=== PATIENT | female | born 1945 | race Caucasian/White ===

== ENCOUNTER → 2016-09-25 | Outpatient (CLI) | payer OTHER ==
[2015-12-26 11:21] VITALS: BP 123/66
--- NOTE | 2016-09-25 13:43 | CT ---
STUDY: CT HEAD WITHOUT CONTRAST HISTORY: Ataxia. CVA. Syncope, dizzy, nausea. COMPARISON: Brain MRI dated February 21, 2014. TECHNIQUE: Multiple axial images of the head were obtained from the skull base to the vertex without administration of IV contrast. Automated exposure control (AEC) was utilized to adjust the MA and/o r kV. Findings: The sulci, cisterns and ventricles are age appropriate. There are scattered foci of low at tenuation in the periventricular and subcortical white matter of both hemispheres. This is a nonspec ific finding which likely represents microangiopathic change in a patient of this age. There are old lacunar infarcts in the basal ganglia bilaterally. There is no evidence of acute anton torial infarction, hemorrhage, mass, mass effect or midline shift. There are no abnormal extra-axial fluid collections. There is no evidence of acute osseous abnormality or significant soft tissue swelling. IMPRESSION: 1. No evidence of acute intracranial abnormality. 2. Nonspecific white matter change. 3. 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 4. If there remains strong clinical concern for acute intracranial abnormality, then an MRI examinat ion should be considered for further evaluation. Reported By:
== END ==
LOC: RAD 10:48
PROVIDERS: ATTEND Internal Medicine
DX: R27.0 Ataxia, unspecified (principal); I67.89 Other cerebrovascular disease
CPT/HCPCS: 70450

== ENCOUNTER → 2016-12-02 | Outpatient (CLI) | payer OTHER ==
[2015-12-26 11:21] VITALS: BP 123/66
--- NOTE | 2016-12-03 16:02 | MG ---
HISTORY: SCREENING Comparison: Multiple mammograms dating back to October 18, 2014. FINDINGS: Bilateral CC and MLO projections of the right and left breast were obtained. Heterogeneously dense fibroglandular tissue is seen to be present. No significant architectural distortion, mass or clust ered microcalcifications can be observed to suggest malignancy. No skin thickening or nipple retrac tion is appreciated. No pathological lymphadenopathy can be identified. Benign-appearing calcifica tions scattered throughout the right and left breasts are observed. IMPRESSION: NO RADIOGRAPHIC EVIDENCE OF MALIGNANCY. ACR CATEGORY: 2 - benign findings. FOLLOW-UP EXAM 1 YEAR. Diagnostic CAD was utilized and reviewed. * 0 (ZERO) - ASSESSMENT INCOMPLETE; ADDITIONAL IMAGING IS NEEDED. * 1/ (ONE) - NEGATIVE. * 2/II (TWO) - BENIGN FINDINGS. * 3/III (THREE) - PROBABLY BENIGN FINDING; SHORT INTERVAL FOLLOW-UP SUGGESTED. * 4/IV (FOUR) - SUSPICIOUS ABNORMALITY; BIOPSY SHOULD BE CONSIDERED. * 5/V - HIGHLY SUSPICIOUS OF MALIGNANCY; BIOPSY SHOULD BE PERFORMED. A NEGATIVE X-RAY REPORT SHOULD NOT DELAY BIOPSY IF A DOMINANT OR CLINICALLY SUSPICIOUS MASS IS PRESENT; 4 TO 8 PERCENT OF CANCERS ARE NOT IDENTIFIED BY X-RAY. A NEG ATIVE REPORT MAY REINFORCE THE CLINICAL IMPRESSION. ADENOSIS AND DENSE BREASTS MAY OBSCURE AN UNDER LYING NEOPLASM. Reported By:
== END ==
LOC: RAD 13:25
PROVIDERS: ATTEND Internal Medicine
DX: Z12.31 Encounter for screening mammogram for malignant neoplasm of breast (principal)
CPT/HCPCS: 77067

== ENCOUNTER 2017-11-25 14:30 | Inpatient (IN) ==
[2017-11-25] MEDS ORDERED: NS 1000 ML 1,000 ML IV ONE ×3 (15:05→19:06)
[2017-11-25 15:20] LABS: BASOPHILS % (AUTO) 0.4 % (0.2-1.0); EOSINOPHILS # (AUTO) 0.1 x10^3/uL (0.0-0.2); EOSINOPHILS % (AUTO) 2.2 % (0.9-2.9); HEMATOCRIT 42.9 % (36.0-47.0); HEMOGLOBIN 14.3 g/dL (12.0-16.0); LYMPHOCYTES # (AUTO) 0.7 X10^3/uL (1.3-2.9); LYMPHOCYTES % (AUTO) 19.6 % (21.0-51.0); MEAN CORPUSCULAR HGB CONC 33.4 g/dL (33.0-35.0); MEAN CORPUSCULAR VOLUME 89.9 fL (80.0-100.0); MONOCYTES # (AUTO) 0 x10^3/uL (0.3-0.8); MONOCYTES % (AUTO) 1.2 % (0.0-13.0); NEUTROPHILS # (AUTO) 2.9 x10^3/uL (2.2-4.8); NEUTROPHILS % (AUTO) 76.6 % (42.0-75.0); PLATELET COUNT 278 X10^3/uL (150.0-450.0); RED BLOOD COUNT 4.76 X10^6/uL (3.5-5.4); RED CELL DISTRIBUTION WIDTH 13.3 % (11.6-16.5); WHITE BLOOD COUNT 3.7 X10^3/uL (3.6-10.0)
--- NOTE | 2017-11-25 15:40 | RAD ---
Chest, AP Indication: Chest pain Comparison: 02/10/2014 Findings: Cardiac silhouette is unremarkable. The lungs are grossly clear without dense infiltrates o r pleural effusion. Unchanged mild right hemidiaphragm elevation. Impression: No acute chest process. Reported By:
[2017-11-25 15:42] LABS: B-TYPE NATRIURETIC PEPTIDE 12.3 pg/mL (0-79)
[2017-11-25 16:23] LABS: ALANINE AMINOTRANSFERASE 76 Units/L (12-78); ALBUMIN 3.6 g/dL (3.4-5.0); ALKALINE PHOSPHATASE 83 Units/L (46-116); ASPARTATE AMINO TRANSFERASE 84 Units/L (15-37); BLOOD UREA NITROGEN 29 mg/dL (7-18); CARBON DIOXIDE 18.6 mmol/L (21-32); CHLORIDE 98 mmol/L (98-107); CKMB % 0.8 % (<4); COR NA(FOR HYPERGLY) 137 mmol/L (136-145); CREATINE KINASE 159 Units/L (26-192); CREATINE KINASE MB 1.3 ng/mL (0-4.0); CREATININE 1.46 mg/dL (0.55-1.02); MAGNESIUM 1.7 mg/dL (1.7-2.9); SODIUM 136 mmol/L (136-145); TROPONIN I < 0.02 ng/mL (0-1.5); eGFR NON BLACK RACES 37 (>60)
[2017-11-25 16:26] LABS: LACTIC ACID 6.4 mmol/L (0.4-2.0)
[2017-11-25] MEDS: ZOFRAN INJ 4 MG VIAL IVP PRN (17:13)
[2017-11-25] MEDS ORDERED: NS 1000 ML 1,000 ML ONE (17:16)
[2017-11-25] MEDS ORDERED: ANTIVERT TAB 25 MG PO PRN (18:09)
[2017-11-25] MEDS ORDERED: TYLENOL #3 TAB (W/CODEINE) PO PRN (18:09)
[2017-11-25] MEDS ORDERED: XANAX ONE (19:10)
[2017-11-25] MEDS: NS 1000 ML 1,000 ML IV SCH ×2 (19:13→21:43)
[2017-11-25 19:38] LABS: CKMB % 0.5 % (<4); CREATINE KINASE 278 Units/L (26-192); CREATINE KINASE MB 1.3 ng/mL (0-4.0); TROPONIN I < 0.02 ng/mL (0-1.5)
[2017-11-25] MEDS ORDERED: TYLENOL 325 MG TAB PO PRN (20:00)
[2017-11-25] MEDS ORDERED: CARDIZEM INJ 125 MG VIAL 125 MG in NS 100 ML IV 100 ML IV PRN (20:08)
[2017-11-25] MEDS ORDERED: OFIRMEV IV 1000 MG VIAL 1,000 MG/100 ML VIAL IV PRN (20:08)
[2017-11-25] MEDS ORDERED: CARDIZEM INJ 50 MG VIAL ONE (20:52)
[2017-11-25] MEDS ORDERED: NS 100 ML IV 100 ML IV ONE (20:52)
[2017-11-25] MEDS: XANAX PO SCH (21:00)
[2017-11-25] MEDS ORDERED: CARDIZEM INJ 50 MG VIAL IVP ONE (21:05)
[2017-11-25] MEDS ORDERED: GLUCOPHAGE ONE (21:22)
[2017-11-25] MEDS ORDERED: NS 250 ML IV 250 ML IV ONE (21:24)
[2017-11-25] MEDS: CRESTOR TAB 10 MG PO SCH (21:28)
[2017-11-25] MEDS: RESTORIL CAP 30 MG PO SCH (21:28)
[2017-11-25] MEDS: ROCEPHIN VIAL 1 GRAM 1 G in NS 100 ML IV + SPIKE MINIBAG* 100 ML IV SCH (21:30)
[2017-11-25] MEDS: GLUCOPHAGE PO SCH (22:00)
[2017-11-25] MEDS ORDERED: K-RIDER 10 MEQ/NS 100 ML 10 MEQ/100 ML BAG IV PRN (22:21)
[2017-11-25] MEDS ORDERED: POTASSIUM CHLORIDE LIQ 20 MEQ UDC PO PRN (22:21)
[2017-11-25] MEDS ORDERED: POTASSIUM CHL 60 MEQ/NS 0.45% 500 ML IV PRN (22:21)
[2017-11-25] MEDS ORDERED: K-LYTE EFFERVESCENT PO PRN (22:21)
[2017-11-25] MEDS ORDERED: POTASSIUM CHL 40 MEQ/NS 0.45% 500 ML IV PRN (22:21)
[2017-11-25] MEDS ORDERED: VANCOMYCIN HCL 1 GM VIAL 1 G in D5W 250 ML IV 250 ML IV ONE (23:20)
[2017-11-25] MEDS ORDERED: VANCOMYCIN 1 GRAM PREMIX (ADDVANTAGE) 250 ML IV ONE (23:22)
[2017-11-25 23:32] VITALS: BMI 24.5
[2017-11-26] MEDS: NS 1000 ML 1,000 ML IV SCH ×4 (00:04→20:00)
[2017-11-26] MEDS: ZOFRAN INJ 4 MG VIAL IVP PRN (01:06)
[2017-11-26] MEDS ORDERED: NS 1000 ML 1,000 ML IV ONE ×2 (01:30→10:18)
[2017-11-26 02:27] LABS: CALCIUM 7.1 mg/dL (8.5-10.1); CARBON DIOXIDE 18.3 mmol/L (21-32); CREATININE 1.17 mg/dL (0.55-1.02)
[2017-11-26 02:28] LABS: LACTIC ACID 3.3 mmol/L (0.4-2.0)
[2017-11-26 02:49] LABS: CKMB % 0.3 % (<4); CREATINE KINASE 451 Units/L (26-192); CREATINE KINASE MB 1.4 ng/mL (0-4.0); TROPONIN I < 0.02 ng/mL (0-1.5)
[2017-11-26] MEDS ORDERED: NS 100 ML IV 100 ML IV ONE ×2 (03:14→11:34)
[2017-11-26] MEDS: MAGNESIUM SULFATE 1 GRAM/100 mL PREMIX 1 GM/100 ML BAG IV PRN ×2 (03:40→04:50)
--- NOTE | 2017-11-26 03:54 | CT ---
CT angiography chest Indication: Shortness of breath, hypotension Technique: The patient received intravenous contrast. 3D and reconstructed multiplanar images with OR P series provided Findings: Cardiac chambers are grossly within normal limits. There is scattered atherosclerosis of th e aorta with no aneurysm or dissection. The pulmonary arteries are normal. There is basilar atelectas is in the right lung underlying COPD is stable. The skeleton is negative for active pathology. Impression: 1. Negative exam for pulmonary artery embolus aortic aneurysm or dissection. 2. Mild incr eased markings of the lung bases. Reported By:
[2017-11-26 05:18] LABS: BILIRUBIN,URINE NEGATIVE (NEGATIVE); BLOOD/HEMOGLOBIN,URINE 2+ (NEGATIVE); GLUCOSE, URINE NEGATIVE (NEGATIVE); KETONES,URINE NEGATIVE (NEGATIVE); LEUKOCYTE ESTERASE ,URINE NEGATIVE (NEGATIVE); NITRITES,URINE NEGATIVE (NEGATIVE); PROTEIN,URINE 1+ (NEGATIVE); UROBILINOGEN,URINE NORMAL (NORMAL)
[2017-11-26 05:19] LABS: APPEARANCE,URINE CLEAR (CLEAR); COLOR,URINE YELLOW (YELLOW)
[2017-11-26 05:25] LABS: BACTERIA,URINE NEGATIVE /HPF (NEGATIVE); RBC,URINE 0-2 /HPF (NONE SEEN); SQUAMOUS EPITHELIAL CELL,UR NEGATIVE /HPF (NEGATIVE)
[2017-11-26] MEDS: DOPAMINE IV PREMIX 400 MG/250 ML 400 MG/250 ML BAG IV PRN ×4 (06:10→16:00)
[2017-11-26] MEDS: HumuLIN R SUBCUT PRN ×2 (06:18→20:37)
[2017-11-26] MEDS: DIFLUCAN PO SCH (08:25)
[2017-11-26] MEDS: XANAX PO SCH ×2 (08:25→21:00)
[2017-11-26] MEDS: ROCEPHIN VIAL 1 GRAM 1 G in NS 100 ML IV + SPIKE MINIBAG* 100 ML IV SCH (08:25)
[2017-11-26] MEDS: PROTONIX TAB 40 MG PO SCH (08:26)
[2017-11-26 08:46] LABS: LACTIC ACID 2.8 mmol/L (0.4-2.0)
[2017-11-26 08:58] LABS: BASOPHILS % (AUTO) 0.3 % (0.2-1.0); EOSINOPHILS % (AUTO) 0.1 % (0.9-2.9); HEMOGLOBIN 11.1 g/dL (12.0-16.0); LYMPHOCYTES # (AUTO) 0.6 X10^3/uL (1.3-2.9); LYMPHOCYTES % (AUTO) 7.4 % (21.0-51.0); MEAN CORPUSCULAR HEMOGLOBIN 30.2 pg (27.0-34.0); MEAN CORPUSCULAR HGB CONC 34.5 g/dL (33.0-35.0); MEAN CORPUSCULAR VOLUME 87.5 fL (80.0-100.0); MEAN PLATELET VOLUME 8.3 fL (7.4-11.0); MONOCYTES # (AUTO) 0.4 x10^3/uL (0.3-0.8); MONOCYTES % (AUTO) 4.6 % (0.0-13.0); NEUTROPHILS # (AUTO) 7.4 x10^3/uL (2.2-4.8); NEUTROPHILS % (AUTO) 87.6 % (42.0-75.0); PLATELET COUNT 188 X10^3/uL (150.0-450.0); RED BLOOD COUNT 3.66 X10^6/uL (3.5-5.4); RED CELL DISTRIBUTION WIDTH 13.5 % (11.6-16.5); WHITE BLOOD COUNT 8.4 X10^3/uL (3.6-10.0)
[2017-11-26 08:58] LABS: ABG ALLEN TEST POS; ABG HCO3 19.2 mmol/L (22-26)
--- NOTE | 2017-11-26 09:25 | DR.H&P ---
H&P - History & Physical for Day of: H&P Date: 11/25/17 - Chief Complaint Chief Complaint: SHAKING, UNSTEADY GAIT, NAUSEA, VOMITING, SHORTNESS OF BREATH - History of Present Illness History of Present Illness: IS A 72 YEAR OLD PATIENT OF OURS WHO PRESENTED TO THE OFFICE WITH COMPLAINTS OF AN UNSTEADY GAIT AND VIGOROUSLY SHAKING. PATIENT ALSO REPORTS NAUSEA AND VOMITING OVER THE PAST TWO DAYS. SHE REPORTS THAT HER BLOOD PRESSURE WAS 80/ THIS MORNING. ASSOCIATED SYMPTOMS INCLUDE SHORTNESS OF BREATH. ON ARRIVAL, VITALS WERE 98.3-144-20-77%-139/81. PATIENT WAS PLACED ON OXYGEN VIA NASAL CANNULA AT 3 L/MIN. OXYGEN SATURATIONS THEN INCREASED TO 100%. LABS WERE OBTAINED. ABNORMAL LAB VALUES INCLUDE THE FOLLOWING: D-DIMER 3560, CARBON DIOXIDE 18.6, BUN 29, CREATININE 1.46, GLUCOSE 152, LACTIC ACID 6.4, TOTAL BILIRUIN 1.30, AST 84. URINALYSIS REVELED WBC-NONE SEEN, RBC 0-2, OCCULT BLOOD 2+, PROTEIN 1+. A CHEST XRAY WAS OBTAINED AND REVEALED NO ACUTE CHEST PROCESS. EKG REVEALED: ATRIAL FIBRILLATION WITH RVR. RATE 153. SHE WAS GIVEN A NORMAL SALINE BOLUS X 2 IN THE ER AND ADMITTED FOR FURTHER EVALUATION AND TREATMENT OF DEHYDRATION, ATRIAL FIBRILLATION, AND SEPSIS. SHE WAS STARTED ON NORMAL SALINE AT 125ML/HR, VANCOMYCIN 1GM IV X 1 DOSE (PHARMACY TO CALCULATE FURTHER DOSES), ROCEPHIN 1GM IV DAILY, AND HOME MEDICATIONS WERE REVIEWED. WE PLAN TO FOLLOW UP WITH LABS AND CONTINUE TO MONITOR PATIENT. - Past Medical History Past Medical History: Diabetes, Dyslipidemia, Hypertension, Hypothyroidism - Past Surgical History Surgical History: Cholecystectomy, Hysterectomy, Tonsillectomy - Family History Family Medical History: Diabetes Mellitus, [place], Hypertension - Social History Does patient currently use any type of tobacco product: No Have you used tobacco products in the last 12 months: No Type of Tobacco Use: None Does any household member use tobacco: No Alcohol Use: None Drug Use: None - Medications Home Medications: amoxicillin Allergy (Verified 11/25/17 17:38) codeine Allergy (Verified 11/25/17 18:09) nitrofurantoin [From Macrobid] Allergy (Verified 11/25/17 17:38) Sulfa (Sulfonamide Antibiotics) [SULFA] Allergy (Verified 11/25/17 17:38) CONTINUE taking the following medications amlodipine 1 tab PO DAILY 11/25/17 [History] atorvastatin 1 tab PO DAILY 11/25/17 [History] clonidine HCl 1 tab PO HS 11/25/17 [History] cyclobenzaprine 10 mg PO TID PRN 11/25/17 [History] dicyclomine 20 mg PO QID 11/25/17 [History] fluconazole 1 tab PO DAILY 11/25/17 [History] meclizine 1 tab PO DAILY PRN 11/25/17 [History] metformin 1 tab PO TID 11/25/17 [History] oxycodone-acetaminophen 1 tab PO Q6H PRN 11/25/17 [History] pantoprazole 1 tab PO DAILY 11/25/17 [History] rosuvastatin 1 tab PO HS 11/25/17 [History] - Review of Systems Constitutional: Chills, Weakness Eyes: No Symptoms Reported ENT: No Symptoms Reported Respiratory: Shortness of Breath Cardiovascular: No Symptoms Reported Gastrointestinal: Nausea, Vomiting, Abdominal Pain Genitourinary: No Symptoms Reported Musculoskeletal: No Symptoms Reported Skin: No Symptoms Reported Neurological: Weakness, Incoordination - Physical Exam Vital Signs: Temperature 98.5 F Pulse Rate [Left Apical] 111 Pulse Rate 144 Respiratory Rate 29 Blood Pressure [Left Arm] 104/57 Blood Pressure 139/81 O2 Sat by Pulse Oximetry 96 Oriented: Normal Eyes: Normal Ear: Normal Nose: Normal Throat: Normal Respiratory: Diminished Throughout Cardiovascular: Tachycardia, Irregular. negative: S3, S4, Murmur : Normal Auscultation: Bowel Sounds: Increased Palpation: Normal Tenderness: Diffuse, Mild. negative: Rebound, Guarding, Rigidity Skin: Normal Musculoskeletal: Instability Psychiatric: Normal Mood Description: Calm Affect: Normal Speech Pattern: Clear - Assessment/Plan (1) Dehydration Status: Acute Plan: NORMAL SALINE AT 125ML/HR, CONTINUE TO MONITOR (2) Atrial fibrillation Status: Acute Plan: CARDIZEM DRIP, RADIOLOGY PHYSICIAN, CONTINUE TO MONITOR (3) Sepsis Status: Acute Plan: VANCOMYCIN IV, ROCEPHIN 1GM IV DAILY, CONTINUE TO MONITOR - Allergies Allergies/Adverse Reactions: Allergies Allergy/AdvReac Type Severity Reaction Status Date / Time amoxicillin Allergy Verified 11/25/17 17:38 codeine Allergy Verified 11/25/17 18:09 nitrofurantoin Allergy Verified 11/25/17 17:38 [From Macrobid] Sulfa (Sulfonamide Allergy Verified 11/25/17 17:38 Antibiotics) [SULFA]
[2017-11-26 09:47] LABS: ALANINE AMINOTRANSFERASE 84 Units/L (12-78); ALBUMIN 2.5 g/dL (3.4-5.0); ALKALINE PHOSPHATASE 78 Units/L (46-116); ASPARTATE AMINO TRANSFERASE 90 Units/L (15-37); BLOOD UREA NITROGEN 16 mg/dL (7-18); CALCIUM 7.6 mg/dL (8.5-10.1); CARBON DIOXIDE 19.4 mmol/L (21-32); CHLORIDE 105 mmol/L (98-107); CHOLESTEROL < 50 mg/dL (0-200); CKMB % 0.4 % (<4); COR CA(FOR HYPOALB) 8.8 mg/dL (8.5-10.1); COR NA(FOR HYPERGLY) 139 mmol/L (136-145); CREATINE KINASE 474 Units/L (26-192); CREATINE KINASE MB 1.8 ng/mL (0-4.0); CREATININE 1.01 mg/dL (0.55-1.02); SODIUM 137 mmol/L (136-145); TOTAL PROTEIN 6.3 g/dL (6.4-8.2); TRIGLYCERIDES 85 mg/dL (0-150); TROPONIN I < 0.02 ng/mL (0-1.5); eGFR NON BLACK RACES 57 (>60)
[2017-11-26 10:40] LABS: CHOL/HDL RATIO 1.1 (0.0-5.0); HDL CHOLESTEROL 46 mg/dL (40-60)
[2017-11-26] MEDS: TORADOL 15 MG VIAL IVP PRN ×2 (10:45→20:35)
[2017-11-26] MEDS ORDERED: PHARMACY CONSULT - VANCOMYCIN XX SCH (12:00)
--- NOTE | 2017-11-26 16:43 | CT ---
CT abdomen and pelvis with contrast Indication: Hypotension, nausea, vomiting, and diarrhea. Comparison: None Technique: CT images of the abdomen and pelvis were obtained with IV and oral contrast. Automatic exp osure control was utilized. Findings: There is multilevel spondylosis, most marked at L4-5 with mild lumbar scoliosis. No acute o sseous abnormality. Images of the lower chest demonstrate chronic appearing interstitial changes of t he lungs. No dense infiltrates or significant pleural effusion. Small round hypodensity within the lateral hepatic segment cannot be definitively characterized, but is likely a benign lesion. The liver is grossly normal in configuration. There are several mildly enl arged upper abdominal lymph nodes. For example, there is the jefferson hepatis lymph node measuring 1.4 c m in short axis (axial image 23). Previous cholecystectomy is noted. The spleen, stomach, duodenum, p ancreas, adrenals, and kidneys are unremarkable. Retro aortic left renal vein incidentally noted. The re is small amount of layering pelvic free fluid, some which lies adjacent to a portion of the sigmoi d, although this bowel loop is otherwise grossly unremarkable. No marked thickening or dilatation of the lower GI tract bowel loops identified. The appendix is not identified, but there is no significan t pericecal inflammation to suggest acute appendicitis. Urinary bladder is mostly collapsed around a Park catheter. Small amount of bladder gas is compatible with catheterization. Previous hysterectomy . The rectum is unremarkable. There is aortoiliac atherosclerosis, with infrarenal aortic ectasia. Impression: No acute process identified to explain patient's symptoms. Mild upper abdominal adenopathy of uncertain significance. Small volume nonspecific layering pelvic free fluid Additional findings as above. Reported By:
[2017-11-26 19:44] LABS: STOOL FOR WBC NEGATIVE (NEGATIVE)
[2017-11-26] MEDS: CRESTOR TAB 10 MG PO SCH (20:35)
[2017-11-26] MEDS: RESTORIL CAP 30 MG PO SCH (20:35)
[2017-11-26] MEDS ORDERED: VANCOMYCIN HCL 1 GM VIAL ONE (21:44)
[2017-11-26] MEDS ORDERED: VANCOMYCIN HCL 500 MG VIAL ONE (21:44)
[2017-11-26] MEDS: VANCOMYCIN HCL 500 MG VIAL 250 MG, VANCOMYCIN HCL 1 GM VIAL 1 G in D5W 250 ML IV 250 ML IV SCH (21:45)
[2017-11-26] MEDS ORDERED: D5W 250 ML IV 250 ML IV ONE (21:45)
[2017-11-27] MEDS: DOPAMINE IV PREMIX 400 MG/250 ML 400 MG/250 ML BAG IV PRN
[2017-11-27] MEDS: NS 1000 ML 1,000 ML IV SCH ×3 (02:00→20:30)
[2017-11-27 04:30] LABS: BASOPHILS # (AUTO) 0.1 X10^3/uL (0.0-0.1); BASOPHILS % (AUTO) 0.6 % (0.2-1.0); EOSINOPHILS # (AUTO) 0.1 x10^3/uL (0.0-0.2); EOSINOPHILS % (AUTO) 1.2 % (0.9-2.9); HEMOGLOBIN 11.2 g/dL (12.0-16.0); LYMPHOCYTES # (AUTO) 1.3 X10^3/uL (1.3-2.9); LYMPHOCYTES % (AUTO) 13.5 % (21.0-51.0); MEAN CORPUSCULAR HEMOGLOBIN 30.4 pg (27.0-34.0); MEAN CORPUSCULAR HGB CONC 34.9 g/dL (33.0-35.0); MEAN CORPUSCULAR VOLUME 86.9 fL (80.0-100.0); MEAN PLATELET VOLUME 7.8 fL (7.4-11.0); MONOCYTES # (AUTO) 0.5 x10^3/uL (0.3-0.8); MONOCYTES % (AUTO) 5.5 % (0.0-13.0); NEUTROPHILS # (AUTO) 7.4 x10^3/uL (2.2-4.8); NEUTROPHILS % (AUTO) 79.2 % (42.0-75.0); PLATELET COUNT 184 X10^3/uL (150.0-450.0); RED BLOOD COUNT 3.68 X10^6/uL (3.5-5.4); RED CELL DISTRIBUTION WIDTH 13.5 % (11.6-16.5); WHITE BLOOD COUNT 9.3 X10^3/uL (3.6-10.0)
[2017-11-27 04:43] LABS: LACTIC ACID 3.3 mmol/L (0.4-2.0)
[2017-11-27 04:52] LABS: ALANINE AMINOTRANSFERASE 72 Units/L (12-78); ALBUMIN 2.3 g/dL (3.4-5.0); ALKALINE PHOSPHATASE 78 Units/L (46-116); ASPARTATE AMINO TRANSFERASE 65 Units/L (15-37); BLOOD UREA NITROGEN 8 mg/dL (7-18); CALCIUM 8.1 mg/dL (8.5-10.1); CARBON DIOXIDE 23.7 mmol/L (21-32); CHLORIDE 106 mmol/L (98-107); CKMB % 0.5 % (<4); COR CA(FOR HYPOALB) 9.5 mg/dL (8.5-10.1); COR NA(FOR HYPERGLY) 140 mmol/L (136-145); CREATINE KINASE 204 Units/L (26-192); CREATINE KINASE MB 1.1 ng/mL (0-4.0); CREATININE 0.81 mg/dL (0.55-1.02); SODIUM 140 mmol/L (136-145); TOTAL PROTEIN 6.1 g/dL (6.4-8.2); TROPONIN I < 0.02 ng/mL (0-1.5); eGFR NON BLACK RACES > 60 (>60)
[2017-11-27 05:18] LABS: ERYTHROCYTE SEDIMENTATION RATE 56 MM/HOUR (0-20)
[2017-11-27] MEDS: PROTONIX TAB 40 MG PO SCH (08:30)
[2017-11-27] MEDS: DIFLUCAN PO SCH (08:30)
[2017-11-27] MEDS: ROCEPHIN VIAL 1 GRAM 1 G in NS 100 ML IV + SPIKE MINIBAG* 100 ML IV SCH (08:31)
[2017-11-27] MEDS: XANAX PO SCH ×2 (08:31→20:35)
--- NOTE | 2017-11-27 18:35 | PCM.PROG ---
Progress Note - Progress Note for Day of Date of Exam: 11/26/17 - Subjective Subjective: WAS ADMITTED FOR DEHYDRATION, ATRIAL FIBRILLATION, AND SEPSIS. SHE WAS STARTED ON A DOPAMINE DRIP AFTER ADMISSION DUE TO PERSISTENT HYPOTENSION DESPITE IV HYDRATION. SHE WAS ALSO STARTED ON A CARDIZEM DRIP DUE TO HEARTRATE IN THE 130s-140s. TODAY, SHE IS ALERT AND ORIENTED, LYING IN BED ON MORNING ROUNDS. SHE IS NOTED WITH COMPLAINTS OF GENERALIZED WEAKNESS AND ABDOMINAL PAIN THIS MORNING. ON EXAMINATION, SHE CONTINUES TO BE IN ATRIAL FIBRILLATION WITH HEARTRATE 110-120. BILATERAL LUNGS ARE NOTED WITH DIMINISHED LUNG SOUNDS THROUGHOUT. ABDOMEN IS ROUND, SOFT, AND NOTED WITH MODERATE, DIFFUSE TENDERNESS TO PALPATION. SHE REMAINS ON THE DOPAMINE DRIP, HOWEVER, THE CARDIZEM DRIP HAS BEEN DISCONTINUED. HER VITALS THIS MORNING ARE 99.3-438-36-100 %NC-99/49. LABS WERE OBTAINED. ABNORMAL LAB VALUES INCLUDE THE FOLLOWING: HGB 11.1, HCT 32.0, CARBON DIOXIDE 19.4, GLUCOSE 163, LACTIC ACID 2.8, CALCIUM 7.6, TOTAL BILI 1.20, AST 90, ALT 84, CREATINE KINASE 474, TOTAL PROTEIN 6.3, ALBUMIN 2.5. AN ABG WAS OBTAINED AND REVEALED: PH 7.430, PC02 29.0, P02 96.0, HC03 19.2, BASE EXCESS -4.0. BLOOD CULTURES AND URINE CULTURE ARE PENDING. A CHEST CT WAS OBTAINED THIS MORNING AND REVEALED: Negative exam for pulmonary artery embolus aortic aneurysm or dissection. 2. Mild increased markings of the lung bases. TODAY, WE WILL BOLUS PATIENT WITH ONE LITER NORMAL SALINE, THEN INCREASE MAINTENANCE FLUIDS TO 150ML/HR. WE WILL START TORADOL 15MG IV Q6H FOR COMPLAINTS OF HEADACHE. WE WILL OBTAIN AN ABDOMEN/PELVIS CT WITH CONTRAST AND TRACK CRP AND ESR LEVELS. OTHERWISE, WE PLAN TO FOLLOW UP WITH AM LABS AND CONTINUE TO MONITOR PATIENT. - Past Medical Family Social History Past Med/Fam/Surg Hx: No changes since H&P Allergies: Allergies amoxicillin Allergy (Verified 11/25/17 17:38) codeine Allergy (Verified 11/25/17 18:09) nitrofurantoin [From Macrobid] Allergy (Verified 11/25/17 17:38) Sulfa (Sulfonamide Antibiotics) [SULFA] Allergy (Verified 11/25/17 17:38) - Review of Systems ROS: No change since H&P - Vital Signs and I&O's Vital Signs: Temperature 100.0 F Pulse Rate [Left Apical] 91 Pulse Rate 144 Respiratory Rate 26 Blood Pressure [Left Arm] 130/59 Blood Pressure 139/81 O2 Sat by Pulse Oximetry 97 Intake and Output: Intake & Output 11/25/17 11/26/17 11/27/17 11/28/17 11:59 11:59 11:59 11:59 Intake Total 6425 / 6425 6437 / 6437 1750 / 1750 Output Total 2800 / 2800 8200 / 8200 1200 / 1200 Balance 3625 / 3625 -1763 / -1763 550 / 550 - Physical Exam Oriented: Normal Eyes: Normal Ear: Normal Nose: Normal Throat: Normal Respiratory: Generalized, Diminished Cardiovascular: Tachycardia, Irregular. negative: S3, S4, Murmur : Normal Auscultation: Bowel Sounds: Increased Palpation: Normal Tenderness: Diffuse, Moderate. negative: Rebound, Guarding, Rigidity Skin: Normal Musculoskeletal: Instability Psychiatric: Normal Mood Description: Calm Affect: Normal Speech Pattern: Clear, Appropriate - Laboratory and Diagnostics Result Diagrams: 11/27/17 04:19 11/27/17 04:19 Labs: 11/26/17 18:28 Stool Stool Culture - Preliminary 11/26/17 18:28 Stool - Final 11/25/17 19:33 Urine,Catheterized Urine Culture - Final 11/25/17 14:45 Blood Blood Culture - Preliminary 11/25/17 15:00 Blood Blood Culture - Preliminary 11/25/17 22:47 Blood Blood Culture - Preliminary 11/25/17 23:51 Blood Blood Culture - Preliminary Laboratory WBC 9.3 X10^3/uL (3.6-10.0) 11/27/17 04:19 RBC 3.68 X10^6/uL (3.5-5.4) 11/27/17 04:19 Hgb 11.2 g/dL (12.0-16.0) L 11/27/17 04:19 Hct 32.0 % (36.0-47.0) L 11/27/17 04:19 MCV 86.9 fL (80.0-100.0) 11/27/17 04:19 MCH 30.4 pg (27.0-34.0) 11/27/17 04:19 MCHC 34.9 g/dL (33.0-35.0) 11/27/17 04:19 RDW 13.5 % (11.6-16.5) 11/27/17 04:19 Plt Count 184 X10^3/uL (150.0-450.0) 11/27/17 04:19 MPV 7.8 fL (7.4-11.0) 11/27/17 04:19 Neut % (Auto) 79.2 % (42.0-75.0) H 11/27/17 04:19 Lymph % (Auto) 13.5 % (21.0-51.0) L 11/27/17 04:19 Dillon % (Auto) 5.5 % (0.0-13.0) 11/27/17 04:19 Eos % (Auto) 1.2 % (0.9-2.9) 11/27/17 04:19 Baso % (Auto) 0.6 % (0.2-1.0) 11/27/17 04:19 Neut # (Auto) 7.4 x10^3/uL (2.2-4.8) H 11/27/17 04:19 Lymph # (Auto) 1.3 X10^3/uL (1.3-2.9) 11/27/17 04:19 Dillon # (Auto) 0.5 x10^3/uL (0.3-0.8) 11/27/17 04:19 Eos # (Auto) 0.1 x10^3/uL (0.0-0.2) 11/27/17 04:19 Baso # (Auto) 0.1 X10^3/uL (0.0-0.1) 11/27/17 04:19 Absolute Nucleated RBC 0.1 /100WBC 11/27/17 04:19 ESR 56 MM/HOUR (0-20) H 11/27/17 04:19 INR Target Range - 11/25/17 14:45 INR 1.02 (0.8-1.3) 11/25/17 14:45 APTT 34.4 SECONDS (22.9-36.5) 11/25/17 14:45 PTT Comment - 11/25/17 14:45 D-Dimer 3560 ng/mL (0-400) H* 11/25/17 14:45 Sample Site Lra 11/26/17 08:50 ABG pH 7.430 (7.35-7.45) 11/26/17 08:50 ABG pCO2 29.0 mmHg (35.0-45.0) L 11/26/17 08:50 ABG pO2 96.0 mmHg (80.0-100.0) 11/26/17 08:50 ABG HCO3 19.2 mmol/L (22-26) L 11/26/17 08:50 ABG O2 Saturation 98.0 % (90-100) 11/26/17 08:50 ABG Base Excess -4.0 mmol/L (-2.0-2.0) L 11/26/17 08:50 Ike Test Pos 11/26/17 08:50 A-a Gradient 67.0 mmHg 11/26/17 08:50 FiO2 28.000 11/26/17 08:50 Blood Gas Comments Charli well cs 11/26/17 08:50 Sodium 140 mmol/L (136-145) 11/27/17 04:19 Corrected Sodium 140 mmol/L (136-145) 11/27/17 04:19 Potassium 4.3 mmol/L (3.5-5.1) 11/27/17 04:19 Chloride 106 mmol/L (98-107) 11/27/17 04:19 Carbon Dioxide 23.7 mmol/L (21-32) 11/27/17 04:19 BUN 8 mg/dL (7-18) 11/27/17 04:19 Creatinine 0.81 mg/dL (0.55-1.02) 11/27/17 04:19 Est GFR (MDRD) Af Amer > 60 (>60) 11/27/17 04:19 Est GFR (MDRD) Non-Af > 60 (>60) 11/27/17 04:19 Glucose 116 mg/dL (65-99) H 11/27/17 04:19 POC Glucose (mg/dL) 119 mg/dL (65-99) H 11/27/17 17:11 Lactic Acid 3.3 mmol/L (0.4-2.0) H 11/27/17 04:19 Calcium 8.1 mg/dL (8.5-10.1) L 11/27/17 04:19 Corrected Calcium 9.5 mg/dL (8.5-10.1) 11/27/17 04:19 Magnesium 1.7 mg/dL (1.7-2.9) 11/25/17 14:45 Total Bilirubin 0.70 mg/dL (0.2-1.0) 11/27/17 04:19 AST 65 Units/L (15-37) H 11/27/17 04:19 ALT 72 Units/L (12-78) 11/27/17 04:19 Alkaline Phosphatase 78 Units/L (46-116) 11/27/17 04:19 Creatine Kinase 204 Units/L (26-192) H 11/27/17 04:19 CK-MB (CK-2) 1.1 ng/mL (0-4.0) 11/27/17 04:19 CK/CKMB % Calc 0.5 % (<4) 11/27/17 04:19 Troponin I < 0.02 ng/mL (0-1.5) 11/27/17 04:19 C-Reactive Protein 147.60 mg/L (0-3.0) H 11/27/17 04:19 B-Natriuretic Peptide 12.3 pg/mL (0-79) 11/25/17 14:45 Total Protein 6.1 g/dL (6.4-8.2) L 11/27/17 04:19 Albumin 2.3 g/dL (3.4-5.0) L 11/27/17 04:19 Globulin 3.8 g/dL (2.5-4.5) 11/27/17 04:19 Albumin/Globulin Ratio 0.6 Ratio (1.1-2.1) L 11/27/17 04:19 Triglycerides 85 mg/dL (0-150) 11/26/17 08:03 Cholesterol < 50 mg/dL (0-200) 11/26/17 08:03 LDL Cholesterol, Calc 0 mg/dL (0-100) 11/26/17 08:03 HDL Cholesterol 46 mg/dL (40-60) 11/26/17 08:03 Cholesterol/HDL Ratio 1.1 (0.0-5.0) 11/26/17 08:03 Specimen Type Catherized urine 11/26/17 04:10 Urine Color Yellow (YELLOW) 11/26/17 04:10 Urine Appearance Clear (CLEAR) 11/26/17 04:10 Urine pH 5.0 (5.0 - 8.0) 11/26/17 04:10 Ur Specific [place]oughton 1.010 (1.000-1.030) 11/26/17 04:10 Urine Protein 1+ (NEGATIVE) 11/26/17 04:10 Urine Glucose (UA) Negative (NEGATIVE) 11/26/17 04:10 Urine Ketones Negative (NEGATIVE) 11/26/17 04:10 Urine Occult Blood 2+ (NEGATIVE) 11/26/17 04:10 Urine Nitrite Negative (NEGATIVE) 11/26/17 04:10 Urine Bilirubin Negative (NEGATIVE) 11/26/17 04:10 Urine Urobilinogen Normal (NORMAL) 11/26/17 04:10 Ur Leukocyte Esterase Negative (NEGATIVE) 11/26/17 04:10 Urine RBC 0-2 /HPF (NONE SEEN) 11/26/17 04:10 Urine WBC None seen /HPF (NONE SEEN) 11/26/17 04:10 Ur Squamous Epith Cells Negative /HPF (NEGATIVE) 11/26/17 04:10 Urine Bacteria Negative /HPF (NEGATIVE) 11/26/17 04:10 Ur Culture Indicated? No/not indicated 11/26/17 04:10 Stool for White Cells Negative (NEGATIVE) 11/26/17 18:28 Stl C. diff Tox B Gene Negative (NEGATIVE) 11/26/17 18:28 Stl C. diff [id number] Negative (NEGATIVE) 11/26/17 18:28 - Plan (1) Dehydration Status: Acute Plan: NS BOLUS, NORMAL SALINE AT 150ML/HR, CONTINUE TO MONITOR (2) Atrial fibrillation Status: Acute Qualifiers: Atrial fibrillation type: chronic Qualified Code(s): I48.2 - Chronic atrial fibrillation Plan: EQUIPMENT SERVICE TECHNICIAN, CONTINUE TO MONITOR (3) Sepsis Status: Acute Qualifiers: Sepsis type: sepsis due to unspecified organism Qualified Code(s): A41.9 - Sepsis, unspecified organism Plan: VANCOMYCIN IV, ROCEPHIN 1GM IV DAILY, CONTINUE TO MONITOR, TRACT LACTIC ACID LEVELS, BLOOD CULTURES, URINE CULTURE
[2017-11-27] MEDS ORDERED: VANCOMYCIN HCL 500 MG VIAL ONE (20:22)
[2017-11-27] MEDS ORDERED: D5W 250 ML IV 250 ML IV ONE (20:22)
[2017-11-27] MEDS ORDERED: VANCOMYCIN HCL 1 GM VIAL ONE (20:22)
[2017-11-27] MEDS: CRESTOR TAB 10 MG PO SCH (20:35)
[2017-11-27] MEDS: RESTORIL CAP 30 MG PO SCH (20:35)
[2017-11-27] MEDS: VANCOMYCIN HCL 500 MG VIAL 250 MG, VANCOMYCIN HCL 1 GM VIAL 1 G in D5W 250 ML IV 250 ML IV SCH (20:35)
[2017-11-27] MEDS ORDERED: ZOFRAN INJ 4 MG VIAL IVP PRN (22:04)
[2017-11-28] MEDS: NS 1000 ML 1,000 ML IV SCH (02:00)
[2017-11-28 06:24] LABS: BASOPHILS # (AUTO) 0.1 X10^3/uL (0.0-0.1); BASOPHILS % (AUTO) 1.1 % (0.2-1.0); EOSINOPHILS # (AUTO) 0.2 x10^3/uL (0.0-0.2); EOSINOPHILS % (AUTO) 2.3 % (0.9-2.9); HEMATOCRIT 31.2 % (36.0-47.0); HEMOGLOBIN 10.9 g/dL (12.0-16.0); LYMPHOCYTES # (AUTO) 2.2 X10^3/uL (1.3-2.9); LYMPHOCYTES % (AUTO) 27.2 % (21.0-51.0); MEAN CORPUSCULAR HEMOGLOBIN 30.5 pg (27.0-34.0); MEAN CORPUSCULAR VOLUME 87.3 fL (80.0-100.0); MEAN PLATELET VOLUME 8.3 fL (7.4-11.0); MONOCYTES # (AUTO) 0.5 x10^3/uL (0.3-0.8); MONOCYTES % (AUTO) 5.7 % (0.0-13.0); NEUTROPHILS # (AUTO) 5.1 x10^3/uL (2.2-4.8); NEUTROPHILS % (AUTO) 63.7 % (42.0-75.0); PLATELET COUNT 169 X10^3/uL (150.0-450.0); RED BLOOD COUNT 3.57 X10^6/uL (3.5-5.4); RED CELL DISTRIBUTION WIDTH 13.6 % (11.6-16.5); WHITE BLOOD COUNT 8.1 X10^3/uL (3.6-10.0)
[2017-11-28] MEDS ORDERED: GLUCOPHAGE ONE (06:24)
[2017-11-28] MEDS: GLUCOPHAGE PO SCH (06:32)
[2017-11-28 07:07] LABS: ALANINE AMINOTRANSFERASE 55 Units/L (12-78); ALBUMIN 2.3 g/dL (3.4-5.0); ALKALINE PHOSPHATASE 79 Units/L (46-116); ASPARTATE AMINO TRANSFERASE 44 Units/L (15-37); BLOOD UREA NITROGEN 9 mg/dL (7-18); CALCIUM 8.2 mg/dL (8.5-10.1); CARBON DIOXIDE 22.3 mmol/L (21-32); CHLORIDE 108 mmol/L (98-107); COR CA(FOR HYPOALB) 9.6 mg/dL (8.5-10.1); CREATININE 0.81 mg/dL (0.55-1.02); SODIUM 140 mmol/L (136-145); TOTAL PROTEIN 5.9 g/dL (6.4-8.2); eGFR NON BLACK RACES > 60 (>60)
[2017-11-28 07:22] LABS: ERYTHROCYTE SEDIMENTATION RATE 62 MM/HOUR (0-20)
--- NOTE | 2017-11-28 07:36 | PCM.PROG ---
Progress Note - Progress Note for Day of Date of Exam: 11/27/17 - Subjective Subjective: WAS ADMITTED FOR DEHYDRATION, ATRIAL FIBRILLATION, AND SEPTIC SHOCK. TODAY, SHE IS ALERT AND ORIENTED, SITTING UP IN BED ON MORNING ROUNDS. SHE IS NOTED WITH COMPLAINTS OF GENERALIZED WEAKNESS AND HEADACHE, BUT IS ASKING TO GO HOME. ON EXAMINATION, HEART IS REGULAR IN RATE AND RHYTHM. BILATERAL LUNGS ARE NOTED WITH DIMINISHED LUNG SOUNDS THROUGHOUT. ABDOMEN IS ROUND, SOFT, AND NOTED WITH MILD, DIFFUSE TENDERNESS. HER VITALS THIS MORNING ARE 99.7-100-28-97%NC-101/57. SHE CONTINUES ON A DOPAMINE DRIP. LABS WERE OBTAINED. ABNORMAL LAB VALUES INCLUDE THE FOLLOWING: HGB 11.2, HCT 32.0, GLUCOSE 116, LACTIC ACID 3.3, CALCIUM 8.1, AST 65, CREATINE KINASE 204, CRP 147.60, TOTAL PROTEIN 6.1, ALBUMIN 2.3. BLOOD CULTURES AND A STOOL CULTURE ARE PENDING. AN ABDOMEN/PELVIS CT WITH CONTRAST WAS OBTAINED AND REVEALED: There is multilevel spondylosis, most marked at L4-5 with mild lumbar scoliosis. No acute osseous abnormality. Images of the lower chest demonstrate chronic appearing interstitial changes of the lungs. No dense infiltrates or significant pleural effusion. Small round hypodensity within the lateral hepatic segment cannot be definitively characterized, but is likely a benign lesion. The liver is grossly normal in configuration. There are several mildly enlarged upper abdominal lymph nodes. For example, there is the jefferson hepatis lymph node measuring 1.4 cm in short axis (axial image 23). Previous cholecystectomy is noted. The spleen, stomach, duodenum, pancreas, adrenals, and kidneys are unremarkable. Retro aortic left renal vein incidentally noted. There is small amount of layering pelvic free fluid, some which lies adjacent to a portion of the sigmoid, although this bowel loop is otherwise grossly unremarkable. No marked thickening or dilatation of the lower GI tract bowel loops identified. The appendix is not identified, but there is no significant pericecal inflammation to suggest acute appendicitis. Urinary bladder is mostly collapsed around a Park catheter. Small amount of bladder gas is compatible with catheterization. Previous hysterectomy. The rectum is unremarkable. There is aortoiliac atherosclerosis, with infrarenal aortic ectasia. SHE CONTINUES ON IV ANTIBIOTICS AND IV FLUIDS. WE WILL CONTINUE WITH CURRENT PLAN OF CARE TODAY. OTHERWISE, WE PLAN TO FOLLOW UP WITH AM LABS AND CONTINUE TO MONITOR PATIENT . - Past Medical Family Social History Past Med/Fam/Surg Hx: No changes since H&P Allergies: Allergies amoxicillin Allergy (Verified 11/25/17 17:38) codeine Allergy (Verified 11/25/17 18:09) nitrofurantoin [From Macrobid] Allergy (Verified 11/25/17 17:38) Sulfa (Sulfonamide Antibiotics) [SULFA] Allergy (Verified 11/25/17 17:38) - Review of Systems ROS: No change since H&P - Vital Signs and I&O's Vital Signs: Temperature 99.3 F Pulse Rate [Left Apical] 88 Pulse Rate 144 Respiratory Rate 30 Blood Pressure [Left Arm] 151/70 Blood Pressure 139/81 O2 Sat by Pulse Oximetry 100 Intake and Output: Intake & Output 11/25/17 11/26/17 11/27/17 11/28/17 11:59 11:59 11:59 11:59 Intake Total 6425 / 6425 6437 / 6437 4042 / 4042 Output Total 2800 / 2800 8200 / 8200 4400 / 4400 Balance 3625 / 3625 -1763 / -1763 -358 / -358 - Physical Exam Oriented: Normal Eyes: Normal Ear: Normal Nose: Normal Throat: Normal Respiratory: Generalized, Diminished Cardiovascular: Tachycardia, Irregular. negative: S3, S4, Murmur : Normal Auscultation: Bowel Sounds: Normal Palpation: Normal Tenderness: Diffuse, Mild. negative: Rebound, Guarding, Rigidity Skin: Normal Musculoskeletal: Instability Psychiatric: Normal Mood Description: Calm Affect: Normal Speech Pattern: Clear, Appropriate - Laboratory and Diagnostics Result Diagrams: 11/28/17 05:50 11/28/17 05:50 Labs: 11/26/17 18:28 Stool Stool Culture - Preliminary 11/26/17 18:28 Stool - Final 11/25/17 19:33 Urine,Catheterized Urine Culture - Final 11/25/17 14:45 Blood Blood Culture - Preliminary 11/25/17 15:00 Blood Blood Culture - Preliminary 11/25/17 22:47 Blood Blood Culture - Preliminary 11/25/17 23:51 Blood Blood Culture - Preliminary Laboratory WBC 8.1 X10^3/uL (3.6-10.0) 11/28/17 05:50 RBC 3.57 X10^6/uL (3.5-5.4) 11/28/17 05:50 Hgb 10.9 g/dL (12.0-16.0) L 11/28/17 05:50 Hct 31.2 % (36.0-47.0) L 11/28/17 05:50 MCV 87.3 fL (80.0-100.0) 11/28/17 05:50 MCH 30.5 pg (27.0-34.0) 11/28/17 05:50 MCHC 35.0 g/dL (33.0-35.0) 11/28/17 05:50 RDW 13.6 % (11.6-16.5) 11/28/17 05:50 Plt Count 169 X10^3/uL (150.0-450.0) 11/28/17 05:50 MPV 8.3 fL (7.4-11.0) 11/28/17 05:50 Neut % (Auto) 63.7 % (42.0-75.0) 11/28/17 05:50 Lymph % (Auto) 27.2 % (21.0-51.0) 11/28/17 05:50 Lynn % (Auto) 5.7 % (0.0-13.0) 11/28/17 05:50 Eos % (Auto) 2.3 % (0.9-2.9) 11/28/17 05:50 Baso % (Auto) 1.1 % (0.2-1.0) H 11/28/17 05:50 Neut # (Auto) 5.1 x10^3/uL (2.2-4.8) H 11/28/17 05:50 Lymph # (Auto) 2.2 X10^3/uL (1.3-2.9) 11/28/17 05:50 Lynn # (Auto) 0.5 x10^3/uL (0.3-0.8) 11/28/17 05:50 Eos # (Auto) 0.2 x10^3/uL (0.0-0.2) 11/28/17 05:50 Baso # (Auto) 0.1 X10^3/uL (0.0-0.1) 11/28/17 05:50 Absolute Nucleated RBC 0.1 /100WBC 11/28/17 05:50 ESR 62 MM/HOUR (0-20) H 11/28/17 05:50 INR Target Range - 11/25/17 14:45 INR 1.02 (0.8-1.3) 11/25/17 14:45 APTT 34.4 SECONDS (22.9-36.5) 11/25/17 14:45 PTT Comment - 11/25/17 14:45 D-Dimer 3560 ng/mL (0-400) H* 11/25/17 14:45 Sample Site Lra 11/26/17 08:50 ABG pH 7.430 (7.35-7.45) 11/26/17 08:50 ABG pCO2 29.0 mmHg (35.0-45.0) L 11/26/17 08:50 ABG pO2 96.0 mmHg (80.0-100.0) 11/26/17 08:50 ABG HCO3 19.2 mmol/L (22-26) L 11/26/17 08:50 ABG O2 Saturation 98.0 % (90-100) 11/26/17 08:50 ABG Base Excess -4.0 mmol/L (-2.0-2.0) L 11/26/17 08:50 Ike Test Pos 11/26/17 08:50 A-a Gradient 67.0 mmHg 11/26/17 08:50 FiO2 28.000 11/26/17 08:50 Blood Gas Comments Charli well cs 11/26/17 08:50 Sodium 140 mmol/L (136-145) 11/28/17 05:50 Corrected Sodium TNP 11/28/17 05:50 Potassium 3.6 mmol/L (3.5-5.1) 11/28/17 05:50 Chloride 108 mmol/L (98-107) H 11/28/17 05:50 Carbon Dioxide 22.3 mmol/L (21-32) 11/28/17 05:50 BUN 9 mg/dL (7-18) 11/28/17 05:50 Creatinine 0.81 mg/dL (0.55-1.02) 11/28/17 05:50 Est GFR (MDRD) Af Amer > 60 (>60) 11/28/17 05:50 Est GFR (MDRD) Non-Af > 60 (>60) 11/28/17 05:50 Glucose 105 mg/dL (65-99) H 11/28/17 05:50 POC Glucose (mg/dL) 104 mg/dL (65-99) H 11/28/17 05:31 Lactic Acid 3.3 mmol/L (0.4-2.0) H 11/27/17 04:19 Calcium 8.2 mg/dL (8.5-10.1) L 11/28/17 05:50 Corrected Calcium 9.6 mg/dL (8.5-10.1) 11/28/17 05:50 Magnesium 1.7 mg/dL (1.7-2.9) 11/25/17 14:45 Total Bilirubin 0.60 mg/dL (0.2-1.0) 11/28/17 05:50 AST 44 Units/L (15-37) H 11/28/17 05:50 ALT 55 Units/L (12-78) 11/28/17 05:50 Alkaline Phosphatase 79 Units/L (46-116) 11/28/17 05:50 Creatine Kinase 204 Units/L (26-192) H 11/27/17 04:19 CK-MB (CK-2) 1.1 ng/mL (0-4.0) 11/27/17 04:19 CK/CKMB % Calc 0.5 % (<4) 11/27/17 04:19 Troponin I < 0.02 ng/mL (0-1.5) 11/27/17 04:19 C-Reactive Protein 80.20 mg/L (0-3.0) H 11/28/17 05:50 B-Natriuretic Peptide 12.3 pg/mL (0-79) 11/25/17 14:45 Total Protein 5.9 g/dL (6.4-8.2) L 11/28/17 05:50 Albumin 2.3 g/dL (3.4-5.0) L 11/28/17 05:50 Globulin 3.6 g/dL (2.5-4.5) 11/28/17 05:50 Albumin/Globulin Ratio 0.6 Ratio (1.1-2.1) L 11/28/17 05:50 Triglycerides 85 mg/dL (0-150) 11/26/17 08:03 Cholesterol < 50 mg/dL (0-200) 11/26/17 08:03 LDL Cholesterol, Calc 0 mg/dL (0-100) 11/26/17 08:03 HDL Cholesterol 46 mg/dL (40-60) 11/26/17 08:03 Cholesterol/HDL Ratio 1.1 (0.0-5.0) 11/26/17 08:03 Specimen Type Catherized urine 11/26/17 04:10 Urine Color Yellow (YELLOW) 11/26/17 04:10 Urine Appearance Clear (CLEAR) 11/26/17 04:10 Urine pH 5.0 (5.0 - 8.0) 11/26/17 04:10 Ur Specific Kamas 1.010 (1.000-1.030) 11/26/17 04:10 Urine Protein 1+ (NEGATIVE) 11/26/17 04:10 Urine Glucose (UA) Negative (NEGATIVE) 11/26/17 04:10 Urine Ketones Negative (NEGATIVE) 11/26/17 04:10 Urine Occult Blood 2+ (NEGATIVE) 11/26/17 04:10 Urine Nitrite Negative (NEGATIVE) 11/26/17 04:10 Urine Bilirubin Negative (NEGATIVE) 11/26/17 04:10 Urine Urobilinogen Normal (NORMAL) 11/26/17 04:10 Ur Leukocyte Esterase Negative (NEGATIVE) 11/26/17 04:10 Urine RBC 0-2 /HPF (NONE SEEN) 11/26/17 04:10 Urine WBC None seen /HPF (NONE SEEN) 11/26/17 04:10 Ur Squamous Epith Cells Negative /HPF (NEGATIVE) 11/26/17 04:10 Urine Bacteria Negative /HPF (NEGATIVE) 11/26/17 04:10 Ur Culture Indicated? No/not indicated 11/26/17 04:10 Stool for White Cells Negative (NEGATIVE) 11/26/17 18:28 Stl C. diff Tox B Gene Negative (NEGATIVE) 11/26/17 18:28 Stl C. diff [id number] Negative (NEGATIVE) 11/26/17 18:28 - Plan (1) Dehydration Status: Acute Plan: NS BOLUS, NORMAL SALINE AT 150ML/HR, CONTINUE TO MONITOR (2) Atrial fibrillation Status: Acute Qualifiers: Atrial fibrillation type: chronic Qualified Code(s): I48.2 - Chronic atrial fibrillation Plan: PATIENT CARE COORDINATOR, CONTINUE TO MONITOR (3) Sepsis Status: Acute Qualifiers: Sepsis type: sepsis due to unspecified organism Qualified Code(s): A41.9 - Sepsis, unspecified organism Plan: VANCOMYCIN IV, ROCEPHIN 1GM IV DAILY, CONTINUE TO MONITOR, TRACT LACTIC ACID LEVELS, BLOOD CULTURES, URINE CULTURE
[2017-11-28] MEDS: PROTONIX TAB 40 MG PO SCH (08:06)
[2017-11-28] MEDS: DIFLUCAN PO SCH (08:06)
[2017-11-28] MEDS: ROCEPHIN VIAL 1 GRAM 1 G in NS 100 ML IV + SPIKE MINIBAG* 100 ML IV SCH (08:06)
[2017-11-28] MEDS: XANAX PO SCH (08:07)
[2017-11-28] MEDS: TORADOL 15 MG VIAL IVP PRN (10:05)
[2017-11-28 10:28] VITALS: BP 117/67
[2017-11-28] MEDS ORDERED: PHARMACY COMMENT IV SCH (20:45)
--- NOTE | 2017-12-08 17:44 | DR.CARTERD ---
- Discharge Summary for: Discharge Summary for Date of:: 11/28/17 - Admission Date Date of Admission: 11/25/17 - Admission Diagnoses Admission Diagnosis: (1) Atrial fibrillation with RVR (2) Suspected Sepsis (3) Rigors (4) Dehydration (5) Nausea and vomiting - Discharge Date Discharge Date: 11/28/17 - Discharge Diagnoses Discharge Diagnosis: (1) Septic shock (2) Atrial fibrillation with RVR (3) Hypotension (3) Dehydration (4) Rigors (5) Nausea and vomiting - Hospital Course Hospital Course: DAY ONE, MS. STONE IS A 72 YEAR OLD PATIENT OF OURS WHO PRESENTED TO THE OFFICE WITH COMPLAINTS OF AN UNSTEADY GAIT AND VIGOROUSLY SHAKING. PATIENT ALSO REPORTED NAUSEA AND VOMITING OVER THE PAST TWO DAYS. SHE REPORTED THAT HER BLOOD PRESSURE WAS 80 SYSTOLIC EARLIER THIS DAY. ASSOCIATED SYMPTOMS INCLUDED SHORTNESS OF BREATH. ON ARRIVAL, VITALS WERE 98.3-144-20-77%-139/81. PATIENT WAS PLACED ON OXYGEN VIA NASAL CANNULA AT 3 L/MIN. OXYGEN SATURATIONS THEN INCREASED TO 100%. LABS WERE OBTAINED. ABNORMAL LAB VALUES INCLUDED THE FOLLOWING: D-DIMER 3560, CARBON DIOXIDE 18.6, BUN 29, CREATININE 1.46, GLUCOSE 152, LACTIC ACID 6.4, TOTAL BILIRUIN 1.30, AST 84. URINALYSIS REVEALED WBC-NONE SEEN, RBC 0-2, OCCULT BLOOD 2+, PROTEIN 1+. A CHEST XRAY WAS OBTAINED AND REVEALED NO ACUTE CHEST PROCESS. EKG REVEALED: ATRIAL FIBRILLATION WITH RVR. RATE 153. SHE WAS GIVEN A NORMAL SALINE BOLUS X 2 IN THE ER AND ADMITTED FOR FURTHER EVALUATION AND TREATMENT OF DEHYDRATION, ATRIAL FIBRILLATION, AND SEPSIS. SHE WAS STARTED ON NORMAL SALINE AT 125ML/HR, VANCOMYCIN 1GM IV AND ROCEPHIN 1GM IV. DAY TWO, MS. STONE WAS ADMITTED FOR DEHYDRATION, ATRIAL FIBRILLATION, AND SEPSIS. SHE WAS STARTED ON A DOPAMINE DRIP AFTER ADMISSION DUE TO PERSISTENT HYPOTENSION DESPITE IV HYDRATION. SHE WAS ALSO STARTED ON A CARDIZEM DRIP DUE TO HEART RATE IN THE 130s-140s. SHE WAS ALERT AND ORIENTED, LYING IN BED ON MORNING ROUNDS. SHE WAS NOTED WITH COMPLAINTS OF GENERALIZED WEAKNESS AND ABDOMINAL PAIN. ON EXAMINATION, SHE CONTINUED TO BE IN ATRIAL FIBRILLATION WITH HEART RATE 110-120. BILATERAL LUNGS WERE NOTED WITH DIMINISHED LUNG SOUNDS THROUGHOUT. ABDOMEN WAS ROUND, SOFT, AND NOTED WITH MODERATE, DIFFUSE TENDERNESS TO PALPATION. SHE REMAINED ON THE DOPAMINE DRIP; HOWEVER, THE CARDIZEM DRIP HAD BEEN DISCONTINUED. HER VITALS WERE 99.6-306-13-100%NC-99/49. LABS WERE OBTAINED. ABNORMAL LAB VALUES INCLUDED THE FOLLOWING: HGB 11.1, HCT 32.0, CARBON DIOXIDE 19.4, GLUCOSE 163, LACTIC ACID 2.8, CALCIUM 7.6, TOTAL BILI 1.20, AST 90, ALT 84, CREATINE KINASE 474, TOTAL PROTEIN 6.3, ALBUMIN 2.5. AN ABG WAS OBTAINED AND REVEALED: PH 7.430, PC02 29.0, P02 96.0, HC03 19.2, BASE EXCESS -4.0. BLOOD CULTURES AND URINE CULTURE WERE PENDING. A CHEST CT WAS OBTAINED AND REPORTED: NEGATIVE EXAM FOR PULMONARY ARTERY EMBOLUS AORTIC ANEURYSM OR DISSECTION; MILD INCREASED MARKINGS OF THE LUNG BASES. WE BOLUSED PATIENT WITH ONE LITER NORMAL SALINE, THEN INCREASED MAINTENANCE FLUIDS TO 150ML /HR. WE STARTED TORADOL 15MG IV Q6H FOR COMPLAINTS OF HEADACHE. WE CONTINUED TO MONITOR PATIENT. DAY THREE, PATIENT WAS ALERT AND ORIENTED, SITTING UP IN BED ON MORNING ROUNDS. SHE WAS NOTED WITH COMPLAINTS OF GENERALIZED WEAKNESS AND HEADACHE, BUT WAS ASKING TO GO HOME. ON EXAMINATION, HEART WAS REGULAR IN RATE AND RHYTHM. BILATERAL LUNGS WERE NOTED WITH DIMINISHED LUNG SOUNDS THROUGHOUT. ABDOMEN WAS ROUND, SOFT, AND NOTED WITH MILD, DIFFUSE TENDERNESS. HER VITALS WERE 99.7-100- 28-97%NC-101/57. SHE CONTINUED ON A DOPAMINE DRIP. LABS WERE OBTAINED. ABNORMAL LAB VALUES INCLUDED THE FOLLOWING: HGB 11.2, HCT 32.0, GLUCOSE 116, LACTIC ACID 3.3, CALCIUM 8.1, AST 65, CREATINE KINASE 204, CRP 147.60, TOTAL PROTEIN 6.1, ALBUMIN 2.3. BLOOD CULTURES AND A STOOL CULTURE WERE PENDING. AN ABDOMEN/PELVIS CT WITH CONTRAST WAS OBTAINED AND REVEALED: NO ACUTE PROCESS IDENTIFIED TO EXPLAIN PATIENT'S SYMPTOMS; MILD UPPER ABDOMINAL ADENOPATHY OF UNCERTAIN SIGNIFICANCE; SMALL VOLUME NONSPECIFIC LAYERING PELVIC FREE FLUID. SHE CONTINUED ON IV ANTIBIOTICS AND IV FLUIDS. WE CONTINUED TO MONITOR PATIENT. DAY FOUR, DOPAMINE DRIP WAS WEANED THROUGH THE NIGHT. BLOOD PRESSURE REMAINED STABLE. BLOOD PRESSURE WAS 134/95. FINAL CULTURES WERE NEGATIVE FOR GROWTH. IT IS BELIEVED THAT MS. STONE HAD EXPERIENCED SEPTIC SHOCK DUE TO HYPOTENSION, FEVER, LACTIC ACID LEVEL, AND RAPID VENTRICULAR RATE. PATIENT REPORTED SHE WAS FEELING MUCH BETTER. SHE REPORTED SYMPTOMS HAD GREATLY IMPROVED. SHE DENIED SHORTNESS OF BREATH, NAUSEA, OR VOMITING. WE PLANNED FOR DISCHARGE WITH ORAL ANTIBIOTICS AND BREATHING TREATMENTS. INSTRUCTIONS FOR MEDICATIONS AND FOLLOW UP WERE DISCUSSED WITH PATIENT AND FAMILY, BOTH VOICED UNDERSTANDING. PATIENT DISCHARGED HOME IN STABLE CONDITION WITH FAMILY. - Discharge Medications Discharge Medications: Home Medication List atorvastatin 1 tab PO DAILY 11/25/17 [History] cyclobenzaprine 10 mg PO TID PRN 11/25/17 [History] dicyclomine 20 mg PO QID 11/25/17 [History] fluconazole 1 tab PO DAILY 11/25/17 [History] meclizine 1 tab PO DAILY PRN 11/25/17 [History] metformin 1 tab PO TID 11/25/17 [History] oxycodone-acetaminophen 1 tab PO Q6H PRN 11/25/17 [History] pantoprazole 1 tab PO DAILY 11/25/17 [History] rosuvastatin 1 tab PO HS 11/25/17 [History] diphenoxylate-atropine [Lomotil] 1 tab PO TID #20 tab 11/28/17 [Rx] ipratropium-albuterol 3 ml INHALATION TID #50 ml 11/28/17 [Rx] levofloxacin [Levaquin] 500 mg PO ONCE #10 tab 11/28/17 [Rx] Prescriptions: diphenoxylate-atropine [Lomotil] Jan Cee ipratropium-albuterol Jan Cee levofloxacin [Levaquin] Jan Cee Home medications Acetaminophen W/ Codeine [Acetaminophen/Codeine #3] 1 tab PO TID PRN 02/10/14 Alprazolam 1 tab PO BID 02/10/14 Temazepam 1 cap PO HS 02/10/14 hydrocodone-acetaminophen 1 tab PO TID PRN 02/10/14 - Discharge Disposition Discharge Disposition: Patient is to follow up in our office in one week.
--- NOTE | 2017-12-13 20:28 | DR.NAUSEAF ---
HPI Time Seen Time seen: 10:30 Primary Care Physician Primary Care Physician: DR. SALAZAR Complaints Chief Complaint:: PT C/O HAVING N/V, AND SHAKING SINCE LAST WEDNESDAY AND PT C/O HAVING THE VIRUS FOR THE PAST FEW DAYS AND THAT HER BP WAS 80/60 .. PT IS VERY PALE AND SHAKING ,,BR Self Treatment fo Chief Complaint: PT'S STATS WERE IN THE 77'S AND 02 PLACED ON 3 LPM AND STATS > 97 Source History Provided: Patient Mode of Arrival Mode of Arrival: Wheelchair Timing Onset of Chief Complaint: 11/25/17 PMH PMH Past Medical History: Yes Past Medical History: Diabetes, Dyslipidemia, Hypertension and Hypothyroidism Past Medical History Comment: FIBRO, HERNIATED DISK Past Surgical History: Yes Surgical History: Cholecystectomy and Hysterectomy Family History History of Family Medical Conditions: No Family Medical History: Cancer, Coronary Artery Disease and Hypertension Social History Does patient currently use any type of tobacco product: No Have you used tobacco products in the last 12 months: No Type of Tobacco Use: None Does any household member use tobacco: No Alcohol Use: None Do you use any recreational Drugs:: No Lives With: Significant Other Lives Where: Home infectious screening In the last 2 months have you had wt loss of >10#?: NO Have you had fever, night sweats or hemotysis?: No Have you traveled outside the country in the last 6 months?: No Isolation: Standard ROS Review of Systems Constitutional: See HPI Cardiovascular: See HPI PE Vital Signs Vitals: Temperature 100.0 F Pulse Rate [Left Apical] 95 Pulse Rate 144 Respiratory Rate 28 Blood Pressure [Left Arm] 117/67 Blood Pressure 139/81 O2 Sat by Pulse Oximetry 97 General Limitations: No Limitations General Appearance: Anxious and In Distress Head Head Exam: Normal Inspection and Atraumatic Eyes Eye exam: Normal Appearance, PERRL and EOMI; negative Scleral Icterus, Conjunctival Injection and Nystagmus ENT ENT Exam: Normal Exam, Normal Oropharynx, Normal External Ear Exam and Mucous Membranes Dry Neck Neck Exam: Normal Inspection and Full ROM; negative Trachea Midline, Tenderness , Meningismus and Lymphadenopathy Chest Chest Inspection: Normal Inspection and Symmetric Chest Wall Rise; negative Tenderness Respiratory Respiratory Exam: Normal Lung Sounds Bilat and Respiratory Distress; negative Accessory Muscle Use Respiratory Exam: Bilateral: Clear to Auscultation and Bilateral: Dullness on Percussion Cardiovascular Cardiovascular Exam: Regular Rate and Normal Rhythm Abdominal Exam Abdominal Exam: Normal Inspection, Normal Bowel Sounds and Hyperactive Bowel Sounds; negative Distention and Rebound Abdominal Tenderness: Diffuse; negative RUQ, RLQ, LUQ, LLQ, Suprapubic and Mild Rectal Rectal Exam: Deferred External Exam: Female: negative Deferred : Speculum Exam (Female): Deferred : Bimanual Exam (female): Deferred; negative Adnexal Tenderness, Right Adnexal Tenderness and Left Adenexal Tenderness Extremities Extremities Exam: Normal Inspection and Full ROM; negative Normal Capillary Refill, Edema and Calf Tenderness Back Back Exam: Normal Inspection; negative (R) CVA Tenderness, (L) CVA Tenderness, Paraspinal Tenderness, (R) Sciatic Notch Tenderness and (L) Straight Leg Raise Neurologic Neurological Exam: Alert, Oriented X3 and CN II-XII Intact Psychiatric Psychiatric Exam: Agitated, Anxious and Other (skin with decreased turgor) Skin Skin Exam: Warm and Pallor; negative Diaphoresis COURSE Treatment Treatment: NS bolus, improved, Zofran IV 4mg, oxygen. Upon presentation she was tachycardia with AF, low BP, she improved with hydration, HR decreased, BP increased and she was admitted for further management Reevaluation 1st: Improved Consultation Called: 17:00 Call Returned: 17:00 Consultation Comments: Dr Salazar recommended hospitalization with request of labs to be drawn in AM ROR Labs Reviewed Result Diagrams: 11/28/17 05:50 11/28/17 05:50 Laboratory: 11/25/17 23:51 Blood Blood Culture - Final 11/25/17 22:47 Blood Blood Culture - Final 11/25/17 15:00 Blood Blood Culture - Final 11/25/17 14:45 Blood Blood Culture - Final 11/26/17 18:28 Stool Stool Culture - Final 11/26/17 18:28 Stool - Final 11/25/17 19:33 Urine,Catheterized Urine Culture - Final WBC 8.1 X10^3/uL (3.6-10.0) 11/28/17 05:50 RBC 3.57 X10^6/uL (3.5-5.4) 11/28/17 05:50 Hgb 10.9 g/dL (12.0-16.0) L 11/28/17 05:50 Hct 31.2 % (36.0-47.0) L 11/28/17 05:50 MCV 87.3 fL (80.0-100.0) 11/28/17 05:50 MCH 30.5 pg (27.0-34.0) 11/28/17 05:50 MCHC 35.0 g/dL (33.0-35.0) 11/28/17 05:50 RDW 13.6 % (11.6-16.5) 11/28/17 05:50 Plt Count 169 X10^3/uL (150.0-450.0) 11/28/17 05:50 MPV 8.3 fL (7.4-11.0) 11/28/17 05:50 Neut % (Auto) 63.7 % (42.0-75.0) 11/28/17 05:50 Lymph % (Auto) 27.2 % (21.0-51.0) 11/28/17 05:50 Dickens % (Auto) 5.7 % (0.0-13.0) 11/28/17 05:50 Eos % (Auto) 2.3 % (0.9-2.9) 11/28/17 05:50 Baso % (Auto) 1.1 % (0.2-1.0) H 11/28/17 05:50 Neut # (Auto) 5.1 x10^3/uL (2.2-4.8) H 11/28/17 05:50 Lymph # (Auto) 2.2 X10^3/uL (1.3-2.9) 11/28/17 05:50 Dickens # (Auto) 0.5 x10^3/uL (0.3-0.8) 11/28/17 05:50 Eos # (Auto) 0.2 x10^3/uL (0.0-0.2) 11/28/17 05:50 Baso # (Auto) 0.1 X10^3/uL (0.0-0.1) 11/28/17 05:50 Absolute Nucleated RBC 0.1 /100WBC 11/28/17 05:50 ESR 62 MM/HOUR (0-20) H 11/28/17 05:50 INR Target Range - 11/25/17 14:45 INR 1.02 (0.8-1.3) 11/25/17 14:45 APTT 34.4 SECONDS (22.9-36.5) 11/25/17 14:45 PTT Comment - 11/25/17 14:45 D-Dimer 3560 ng/mL (0-400) H* 11/25/17 14:45 Sample Site Lra 11/26/17 08:50 ABG pH 7.430 (7.35-7.45) 11/26/17 08:50 ABG pCO2 29.0 mmHg (35.0-45.0) L 11/26/17 08:50 ABG pO2 96.0 mmHg (80.0-100.0) 11/26/17 08:50 ABG HCO3 19.2 mmol/L (22-26) L 11/26/17 08:50 ABG O2 Saturation 98.0 % (90-100) 11/26/17 08:50 ABG Base Excess -4.0 mmol/L (-2.0-2.0) L 11/26/17 08:50 Ike Test Pos 11/26/17 08:50 A-a Gradient 67.0 mmHg 11/26/17 08:50 FiO2 28.000 11/26/17 08:50 Blood Gas Comments Charli well cs 11/26/17 08:50 Sodium 140 mmol/L (136-145) 11/28/17 05:50 Corrected Sodium TNP 11/28/17 05:50 Potassium 3.6 mmol/L (3.5-5.1) 11/28/17 05:50 Chloride 108 mmol/L (98-107) H 11/28/17 05:50 Carbon Dioxide 22.3 mmol/L (21-32) 11/28/17 05:50 BUN 9 mg/dL (7-18) 11/28/17 05:50 Creatinine 0.81 mg/dL (0.55-1.02) 11/28/17 05:50 Est GFR (MDRD) Af Amer > 60 (>60) 11/28/17 05:50 Est GFR (MDRD) Non-Af > 60 (>60) 11/28/17 05:50 Glucose 105 mg/dL (65-99) H 11/28/17 05:50 POC Glucose (mg/dL) 104 mg/dL (65-99) H 11/28/17 05:31 Lactic Acid 2.2 mmol/L (0.4-2.0) H 11/28/17 07:57 Calcium 8.2 mg/dL (8.5-10.1) L 11/28/17 05:50 Corrected Calcium 9.6 mg/dL (8.5-10.1) 11/28/17 05:50 Magnesium 1.7 mg/dL (1.7-2.9) 11/25/17 14:45 Total Bilirubin 0.60 mg/dL (0.2-1.0) 11/28/17 05:50 AST 44 Units/L (15-37) H 11/28/17 05:50 ALT 55 Units/L (12-78) 11/28/17 05:50 Alkaline Phosphatase 79 Units/L (46-116) 11/28/17 05:50 Creatine Kinase 204 Units/L (26-192) H 11/27/17 04:19 CK-MB (CK-2) 1.1 ng/mL (0-4.0) 11/27/17 04:19 CK/CKMB % Calc 0.5 % (<4) 11/27/17 04:19 Troponin I < 0.02 ng/mL (0-1.5) 11/27/17 04:19 C-Reactive Protein 80.20 mg/L (0-3.0) H 11/28/17 05:50 B-Natriuretic Peptide 12.3 pg/mL (0-79) 11/25/17 14:45 Total Protein 5.9 g/dL (6.4-8.2) L 11/28/17 05:50 Albumin 2.3 g/dL (3.4-5.0) L 11/28/17 05:50 Globulin 3.6 g/dL (2.5-4.5) 11/28/17 05:50 Albumin/Globulin Ratio 0.6 Ratio (1.1-2.1) L 11/28/17 05:50 Triglycerides 85 mg/dL (0-150) 11/26/17 08:03 Cholesterol < 50 mg/dL (0-200) 11/26/17 08:03 LDL Cholesterol, Calc 0 mg/dL (0-100) 11/26/17 08:03 HDL Cholesterol 46 mg/dL (40-60) 11/26/17 08:03 Cholesterol/HDL Ratio 1.1 (0.0-5.0) 11/26/17 08:03 Specimen Type Catherized urine 11/26/17 04:10 Urine Color Yellow (YELLOW) 11/26/17 04:10 Urine Appearance Clear (CLEAR) 11/26/17 04:10 Urine pH 5.0 (5.0 - 8.0) 11/26/17 04:10 Ur Specific [place] 1.010 (1.000-1.030) 11/26/17 04:10 Urine Protein 1+ (NEGATIVE) 11/26/17 04:10 Urine Glucose (UA) Negative (NEGATIVE) 11/26/17 04:10 Urine Ketones Negative (NEGATIVE) 11/26/17 04:10 Urine Occult Blood 2+ (NEGATIVE) 11/26/17 04:10 Urine Nitrite Negative (NEGATIVE) 11/26/17 04:10 Urine Bilirubin Negative (NEGATIVE) 11/26/17 04:10 Urine Urobilinogen Normal (NORMAL) 11/26/17 04:10 Ur Leukocyte Esterase Negative (NEGATIVE) 11/26/17 04:10 Urine RBC 0-2 /HPF (NONE SEEN) 11/26/17 04:10 Urine WBC None seen /HPF (NONE SEEN) 11/26/17 04:10 Ur Squamous Epith Cells Negative /HPF (NEGATIVE) 11/26/17 04:10 Urine Bacteria Negative /HPF (NEGATIVE) 11/26/17 04:10 Ur Culture Indicated? No/not indicated 11/26/17 04:10 Stool for White Cells Negative (NEGATIVE) 11/26/17 18:28 Stl C. diff Tox B Gene Negative (NEGATIVE) 11/26/17 18:28 Stl C. diff [id number] Negative (NEGATIVE) 11/26/17 18:28 XRAY XRAY Findings: Chest: no acute findings Diagnosis Discharge Problem: Atrial fibrillation, Dehydration Narrative Support Text: Patient was admitted to hospital for further management and treatment per Dr Salazar with a diagnosis of dehydration and dyspnea. Instructions Instructions: Shortness of Breath, Adult, [id number] Dehydration, Adult, [id number] Form - Blood Pressure Record Sheet Nausea and Vomiting, Adult
--- NOTE | 2018-01-03 02:51 | ED.ABDFE ---
HPI Time Seen Time seen: 10:35 PCP Primary Care Physician: DR. SALAZAR Complaint Chief Complaint:: PT C/O HAVING N/V, AND SHAKING SINCE LAST WEDNESDAY AND PT C/O HAVING THE VIRUS FOR THE PAST FEW DAYS AND THAT HER BP WAS 80/60 .. PT IS VERY PALE AND SHAKING ,,BR Self Treatment fo Chief Complaint: PT'S STATS WERE IN THE 77'S AND 02 PLACED ON 3 LPM AND STATS > 97 Source History Provided: Patient Mode of arrival Mode of Arrival: Wheelchair Timing Onset of Chief Complaint: 11/25/17 PMH PMH Past Medical History: Yes Past Medical History: Diabetes, Dyslipidemia, Hypertension and Hypothyroidism Past Medical History Comment: FIBRO, HERNIATED DISK Past Surgical History: Yes Surgical History: Cholecystectomy and Hysterectomy Family History History of Family Medical Conditions: No Family Medical History: Cancer, Coronary Artery Disease and Hypertension Social History Does patient currently use any type of tobacco product: No Have you used tobacco products in the last 12 months: No Type of Tobacco Use: None Does any household member use tobacco: No Alcohol Use: None Do you use any recreational Drugs:: No Lives With: Significant Other Lives Where: Home infectious screening In the last 2 months have you had wt loss of >10#?: NO Have you had fever, night sweats or hemotysis?: No Have you traveled outside the country in the last 6 months?: No Isolation: Standard PE Vital Signs Vitals: Temperature 100.0 F Pulse Rate [Left Apical] 95 Pulse Rate 144 Respiratory Rate 28 Blood Pressure [Left Arm] 117/67 Blood Pressure 139/81 O2 Sat by Pulse Oximetry 97 General Limitations: Language Barrier; negative No Limitations General Appearance: Alert and In Distress Head Head Exam: Normal Inspection, Atraumatic, Normocephalic and Other (Patient had generalized tremors and weak voice with pausing intermittently for breath) Eyes Eye exam: Normal Appearance, PERRL and EOMI; negative Scleral Icterus ENT ENT Exam: Normal Exam, Normal Oropharynx, Mucous Membranes Dry and TM's Normal Bilaterally Neck Neck Exam: Full ROM Chest Chest Inspection: Normal Inspection and Symmetric Chest Wall Rise; negative Tenderness Respiratory Respiratory Exam: Normal Lung Sounds Bilat, Accessory Muscle Use (generalized tremors), Prolonged Expiratory Phase and Respiratory Distress; negative Chest Wall Tenderness and Stridor Respiratory Exam: Bilateral: Clear to Auscultation and Bilateral: Decreased Breath Sounds Cardiovascular Cardiovascular Exam: Regular Rate and Normal Rhythm Abdominal Exam Abdominal Exam: Normal Inspection, Normal Bowel Sounds, Soft and Hyperactive Bowel Sounds; negative Distention, Tenderness, Guarding, Ascites and Bruit Abdominal Tenderness: negative RUQ, RLQ, LUQ, LLQ, Epigastrium, Suprapubic and Diffuse Rectal Rectal Exam: Deferred Back Back Exam: Normal Inspection; negative (R) CVA Tenderness and (L) CVA Tenderness Extremeties Extremities Exam: Normal Inspection, Full ROM and Normal Capillary Refill; negative Edema External Exam: Female: Deferred : Speculum Exam (Female): Deferred : Bimanual Exam (female): Deferred; negative Adnexal Tenderness, Right Adnexal Tenderness, Left Adenexal Tenderness, Adnexal Mass and Right Adnexal Mass Neurologic Neurological Exam: Alert, Oriented X3, CN II-XII Intact and Other (generalized tremors) Psychiatric Psychiatric Exam: Normal Affect, Normal Mood and Anxious Skin Skin Exam: Warm, Dry (decreased turgor), Intact and Normal Color; negative Rash , Cyanosis and Diaphoresis COURSE Treatment Treatment: NS hydration,electrolytes,cbc, cmp,can Reevaluation 1st: Improved (patient had hypotension improved somewhat with NS ) Consultation Consultation Comments: Dr. Salazar agree for admission due to dehydration ROR Labs Reviewed Laboratory Results Reviewed?: Yes Result Diagrams: 11/28/17 05:50 11/28/17 05:50 Laboratory: 11/25/17 23:51 Blood Blood Culture - Final 11/25/17 22:47 Blood Blood Culture - Final 11/25/17 15:00 Blood Blood Culture - Final 11/25/17 14:45 Blood Blood Culture - Final 11/26/17 18:28 Stool Stool Culture - Final 11/26/17 18:28 Stool - Final 11/25/17 19:33 Urine,Catheterized Urine Culture - Final WBC 8.1 X10^3/uL (3.6-10.0) 11/28/17 05:50 RBC 3.57 X10^6/uL (3.5-5.4) 11/28/17 05:50 Hgb 10.9 g/dL (12.0-16.0) L 11/28/17 05:50 Hct 31.2 % (36.0-47.0) L 11/28/17 05:50 MCV 87.3 fL (80.0-100.0) 11/28/17 05:50 MCH 30.5 pg (27.0-34.0) 11/28/17 05:50 MCHC 35.0 g/dL (33.0-35.0) 11/28/17 05:50 RDW 13.6 % (11.6-16.5) 11/28/17 05:50 Plt Count 169 X10^3/uL (150.0-450.0) 11/28/17 05:50 MPV 8.3 fL (7.4-11.0) 11/28/17 05:50 Neut % (Auto) 63.7 % (42.0-75.0) 11/28/17 05:50 Lymph % (Auto) 27.2 % (21.0-51.0) 11/28/17 05:50 [place] % (Auto) 5.7 % (0.0-13.0) 11/28/17 05:50 Eos % (Auto) 2.3 % (0.9-2.9) 11/28/17 05:50 Baso % (Auto) 1.1 % (0.2-1.0) H 11/28/17 05:50 Neut # (Auto) 5.1 x10^3/uL (2.2-4.8) H 11/28/17 05:50 Lymph # (Auto) 2.2 X10^3/uL (1.3-2.9) 11/28/17 05:50 [place] # (Auto) 0.5 x10^3/uL (0.3-0.8) 11/28/17 05:50 Eos # (Auto) 0.2 x10^3/uL (0.0-0.2) 11/28/17 05:50 Baso # (Auto) 0.1 X10^3/uL (0.0-0.1) 11/28/17 05:50 Absolute Nucleated RBC 0.1 /100WBC 11/28/17 05:50 ESR 62 MM/HOUR (0-20) H 11/28/17 05:50 INR Target Range - 11/25/17 14:45 INR 1.02 (0.8-1.3) 11/25/17 14:45 APTT 34.4 SECONDS (22.9-36.5) 11/25/17 14:45 PTT Comment - 11/25/17 14:45 D-Dimer 3560 ng/mL (0-400) H* 11/25/17 14:45 Sample Site Lra 11/26/17 08:50 ABG pH 7.430 (7.35-7.45) 11/26/17 08:50 ABG pCO2 29.0 mmHg (35.0-45.0) L 11/26/17 08:50 ABG pO2 96.0 mmHg (80.0-100.0) 11/26/17 08:50 ABG HCO3 19.2 mmol/L (22-26) L 11/26/17 08:50 ABG O2 Saturation 98.0 % (90-100) 11/26/17 08:50 ABG Base Excess -4.0 mmol/L (-2.0-2.0) L 11/26/17 08:50 Ike Test Pos 11/26/17 08:50 A-a Gradient 67.0 mmHg 11/26/17 08:50 FiO2 28.000 11/26/17 08:50 Blood Gas Comments Charli well cs 11/26/17 08:50 Sodium 140 mmol/L (136-145) 11/28/17 05:50 Corrected Sodium TNP 11/28/17 05:50 Potassium 3.6 mmol/L (3.5-5.1) 11/28/17 05:50 Chloride 108 mmol/L (98-107) H 11/28/17 05:50 Carbon Dioxide 22.3 mmol/L (21-32) 11/28/17 05:50 BUN 9 mg/dL (7-18) 11/28/17 05:50 Creatinine 0.81 mg/dL (0.55-1.02) 11/28/17 05:50 Est GFR (MDRD) Af Amer > 60 (>60) 11/28/17 05:50 Est GFR (MDRD) Non-Af > 60 (>60) 11/28/17 05:50 Glucose 105 mg/dL (65-99) H 11/28/17 05:50 POC Glucose (mg/dL) 104 mg/dL (65-99) H 11/28/17 05:31 Lactic Acid 2.2 mmol/L (0.4-2.0) H 11/28/17 07:57 Calcium 8.2 mg/dL (8.5-10.1) L 11/28/17 05:50 Corrected Calcium 9.6 mg/dL (8.5-10.1) 11/28/17 05:50 Magnesium 1.7 mg/dL (1.7-2.9) 11/25/17 14:45 Total Bilirubin 0.60 mg/dL (0.2-1.0) 11/28/17 05:50 AST 44 Units/L (15-37) H 11/28/17 05:50 ALT 55 Units/L (12-78) 11/28/17 05:50 Alkaline Phosphatase 79 Units/L (46-116) 11/28/17 05:50 Creatine Kinase 204 Units/L (26-192) H 11/27/17 04:19 CK-MB (CK-2) 1.1 ng/mL (0-4.0) 11/27/17 04:19 CK/CKMB % Calc 0.5 % (<4) 11/27/17 04:19 Troponin I < 0.02 ng/mL (0-1.5) 11/27/17 04:19 C-Reactive Protein 80.20 mg/L (0-3.0) H 11/28/17 05:50 B-Natriuretic Peptide 12.3 pg/mL (0-79) 11/25/17 14:45 Total Protein 5.9 g/dL (6.4-8.2) L 11/28/17 05:50 Albumin 2.3 g/dL (3.4-5.0) L 11/28/17 05:50 Globulin 3.6 g/dL (2.5-4.5) 11/28/17 05:50 Albumin/Globulin Ratio 0.6 Ratio (1.1-2.1) L 11/28/17 05:50 Triglycerides 85 mg/dL (0-150) 11/26/17 08:03 Cholesterol < 50 mg/dL (0-200) 11/26/17 08:03 LDL Cholesterol, Calc 0 mg/dL (0-100) 11/26/17 08:03 HDL Cholesterol 46 mg/dL (40-60) 11/26/17 08:03 Cholesterol/HDL Ratio 1.1 (0.0-5.0) 11/26/17 08:03 Specimen Type Catherized urine 11/26/17 04:10 Urine Color Yellow (YELLOW) 11/26/17 04:10 Urine Appearance Clear (CLEAR) 11/26/17 04:10 Urine pH 5.0 (5.0 - 8.0) 11/26/17 04:10 Ur Specific [place] 1.010 (1.000-1.030) 11/26/17 04:10 Urine Protein 1+ (NEGATIVE) 11/26/17 04:10 Urine Glucose (UA) Negative (NEGATIVE) 11/26/17 04:10 Urine Ketones Negative (NEGATIVE) 11/26/17 04:10 Urine Occult Blood 2+ (NEGATIVE) 11/26/17 04:10 Urine Nitrite Negative (NEGATIVE) 11/26/17 04:10 Urine Bilirubin Negative (NEGATIVE) 11/26/17 04:10 Urine Urobilinogen Normal (NORMAL) 11/26/17 04:10 Ur Leukocyte Esterase Negative (NEGATIVE) 11/26/17 04:10 Urine RBC 0-2 /HPF (NONE SEEN) 11/26/17 04:10 Urine WBC None seen /HPF (NONE SEEN) 11/26/17 04:10 Ur Squamous Epith Cells Negative /HPF (NEGATIVE) 11/26/17 04:10 Urine Bacteria Negative /HPF (NEGATIVE) 11/26/17 04:10 Ur Culture Indicated? No/not indicated 11/26/17 04:10 Stool for White Cells Negative (NEGATIVE) 11/26/17 18:28 Stl C. diff Tox B Gene Negative (NEGATIVE) 11/26/17 18:28 Stl C. diff [id number] Negative (NEGATIVE) 11/26/17 18:28 Diagnosis Discharge Problem: Atrial fibrillation, Dehydration Instructions Instructions: Shortness of Breath, Adult, [place]-sq-[id number] Dehydration, Adult, [id number] Form - Blood Pressure Record Sheet Nausea and Vomiting, Adult
== END 2017-11-28 11:55 | disposition home or self-care (01) | DRG 308 ==
LOC: ER 14:39 → ICU 17:16
PROVIDERS: ADMIT Internal Medicine; ATTEND Internal Medicine
DX: M25.511 Pain in right shoulder; I10 Essential (primary) hypertension; R11.2 Nausea with vomiting, unspecified; R65.21 Severe sepsis with septic shock; Z66 Do not resuscitate; R06.02 Shortness of breath; I48.2 Chronic atrial fibrillation; E55.9 Vitamin D deficiency, unspecified; R79.82 Elevated C-reactive protein (CRP); E10.65 Type 1 diabetes mellitus with hyperglycemia; M79.7 Fibromyalgia; E86.0 Dehydration; A41.02 Sepsis due to Methicillin resistant Staphylococcus aureus; I95.89 Other hypotension; E78.2 Mixed hyperlipidemia; A41.89 Other specified sepsis; R26.81 Unsteadiness on feet; R51 Headache; E03.8 Other specified hypothyroidism
CPT/HCPCS: 36415; 36600; 71010; 71045; 71275; 74177; 80048; 80053; 80061; 81001; 82550; 82553; 82803; 83605; 83630; 83735; 83880; 84484; 85025; 85378; 85610; 85652; 85730; 86140; 87040; 87045; 87086; 87427; 87449; 87493; 87899; 93005; 96365; 96367; 96374; 99284; A4216; A4222; J0131; J0696; J1265; J1815; J1885; J2405; J3370; J3475; J3490; J7030; J7050; J7060; J8499

== ENCOUNTER 2018-05-12 11:29 | Inpatient (IN) ==
[2018-05-12] MEDS ORDERED: NS 1000 ML 1,000 ML IV ONE (11:34)
[2018-05-12 11:36] VITALS: BMI 22.6
--- NOTE | 2018-05-12 11:41 | DR.GENAD ---
HPI Time Seen Time Seen by Provider: 05/12/18 11:34 PCP Primary Care Physician: DR SALAZAR Complaint/Symptoms Chief Complaint Doctors Comments: Patient presents with complaint of not eating or drinking for 3 days, this morning was going to bathroom and not able to continue bent to her knees and fell to the floor. She admits to previous episode earlier in the year. Denies cardiopulmonary diseawe. Chief Complaint:: PT STATES THAT FOR PAST FEW DAYS SHE HAS BEEN VERY WEAK AND HAS FALLEN SEVERAL TIMES. CAME HOME THIS MORNING AND CHECKED HER BP AND IT WAS 70/30. PT ALSO C/O VOMITING X 1. C/O PAIN INTO KNEES AND BACK FROM FALL Source History Provided: Patient Mode of Arrival Mode of Arrival: Wheelchair Timing Onset of Chief Complaint: 05/12/18 PMH PMH Past Medical History: Yes Past Medical History: Diabetes, Hypertension and Hypothyroidism Past Medical History Comment: FIBROMYALGIA, TIA,AFIB Past Surgical History: Yes Surgical History: Cholecystectomy and Hysterectomy Past Surgical History Comment: BILATERAL CATARACT SURGERY, RECTOCELE, CYSTOCELE Family History History of Family Medical Conditions: Yes Family Medical History: Coronary Artery Disease and Hypertension Social History Does patient currently use any type of tobacco product: Yes Have you used tobacco products in the last 12 months: No Type of Tobacco Use: None Does any household member use tobacco: No Alcohol Use: None Do you use any recreational Drugs:: No Lives With: Alone Lives Where: Home infectious screening In the last 2 months have you had wt loss of >10#?: NO Have you had fever, night sweats or hemotysis?: No Have you traveled outside the country in the last 6 months?: No Isolation: Standard PE Vital Signs Vitals: Temperature 97.8 F Pulse Rate 105 Respiratory Rate 22 Blood Pressure [Left Arm] 117/67 Blood Pressure 114/53 O2 Sat by Pulse Oximetry 99 General Limitations: No Limitations and Language Barrier General Appearance: Alert and In No Apparent Distress Head Head Exam: Normal Inspection, Atraumatic and Normocephalic Eyes Eye exam: Normal Appearance, PERRL and EOMI ENT ENT Exam: Normal Exam, Normal Oropharynx and Normal External Ear Exam External Ear Exam: Normal External Inspection TM/Canal Exam: Bilateral: Normal Nose Exam: Normal Nose Exam Mouth Exam: negative Lip Swelling and Tongue Swelling (dry) Throat Exam: Normal Inspection and Tonsillar Erythema Neck Neck Exam: Normal Inspection and Full ROM Chest Chest Inspection: Normal Inspection and Symmetric Chest Wall Rise Respiratory Respiratory Exam: Bilateral: Clear to Auscultation Cardiovascular Cardiovascular Exam: Regular Rate and Normal Rhythm Abdominal Exam Abdominal Exam: Normal Inspection, Normal Bowel Sounds and Soft Extremities Extremities Exam: Normal Inspection and Full ROM Back Back Exam: Normal Inspection Neurologic Neurological Exam: Alert, Oriented X3 and CN II-XII Intact Psychiatric Psychiatric Exam: Normal Affect and Normal Mood Skin Skin Exam: Warm and Intact COURSE Consultation Called: 14:20 Consultation Comments: Dr. Salazar agreed to admit for further evaluation and treatment ROR Labs Reviewed Laboratory Results Reviewed?: Yes Result Diagrams: 05/12/18 11:50 05/12/18 11:50 Laboratory: WBC 25.4 X10^3/uL (3.6-10.0) H 05/12/18 11:50 RBC 4.98 X10^6/uL (3.5-5.4) 05/12/18 11:50 Hgb 14.7 g/dL (12.0-16.0) 05/12/18 11:50 Hct 43.5 % (36.0-47.0) 05/12/18 11:50 MCV 87.4 fL (80.0-100.0) 05/12/18 11:50 MCH 29.5 pg (27.0-34.0) 05/12/18 11:50 MCHC 33.7 g/dL (33.0-35.0) 05/12/18 11:50 RDW 14.8 % (11.6-16.5) 05/12/18 11:50 Plt Count 231 X10^3/uL (150.0-450.0) 05/12/18 11:50 Plt Count Comment Adequate (ADEQUATE) 05/12/18 11:50 MPV 8.2 fL (7.4-11.0) 05/12/18 11:50 Neut % (Auto) 90.1 % (42.0-75.0) H 05/12/18 11:50 Lymph % (Auto) 5.2 % (21.0-51.0) L 05/12/18 11:50 [place] % (Auto) 4.3 % (0.0-13.0) 05/12/18 11:50 Eos % (Auto) 0.0 % (0.9-2.9) L 05/12/18 11:50 Baso % (Auto) 0.4 % (0.2-1.0) 05/12/18 11:50 Neut # (Auto) 22.9 x10^3/uL (2.2-4.8) H 05/12/18 11:50 Lymph # (Auto) 1.3 X10^3/uL (1.3-2.9) 05/12/18 11:50 [place] # (Auto) 1.1 x10^3/uL (0.3-0.8) H 05/12/18 11:50 Eos # (Auto) 0.0 x10^3/uL (0.0-0.2) 05/12/18 11:50 Baso # (Auto) 0.1 X10^3/uL (0.0-0.1) 05/12/18 11:50 Absolute Nucleated RBC 0.0 /100WBC 05/12/18 11:50 Total Counted 100 05/12/18 11:50 Neutrophils % (Manual) 74 % (39-76) 05/12/18 11:50 Band Neutrophils % 20 % (0-10) H 05/12/18 11:50 Lymphocytes % (Manual) 4 % (13-43) L 05/12/18 11:50 Monocytes % (Manual) 2 % (4-9) L 05/12/18 11:50 Plt Morphology Comment Normal (NORMAL) 05/12/18 11:50 RBC Morphology Normal (NORMAL) 05/12/18 11:50 Sodium 135 mmol/L (136-145) L 05/12/18 11:50 Corrected Sodium 136 mmol/L (136-145) 05/12/18 11:50 Potassium 5.0 mmol/L (3.5-5.1) 05/12/18 11:50 Chloride 98 mmol/L (98-107) 05/12/18 11:50 Carbon Dioxide 19.5 mmol/L (21-32) L 05/12/18 11:50 BUN 54 mg/dL (7-18) H 05/12/18 11:50 Creatinine 4.30 mg/dL (0.55-1.02) H 05/12/18 11:50 Est GFR (MDRD) Af Amer 13 (>60) L 05/12/18 11:50 Est GFR (MDRD) Non-Af 11 (>60) L 05/12/18 11:50 Glucose 129 mg/dL (65-99) H 05/12/18 11:50 POC Glucose (mg/dL) 122 mg/dL (65-99) H 05/12/18 16:46 Lactic Acid 2.2 mmol/L (0.4-2.0) H 05/12/18 14:05 Calcium 8.4 mg/dL (8.5-10.1) L 05/12/18 11:50 Corrected Calcium 9.3 mg/dL (8.5-10.1) 05/12/18 11:50 Total Bilirubin 0.90 mg/dL (0.2-1.0) 05/12/18 11:50 AST 63 Units/L (15-37) H 05/12/18 11:50 ALT 57 Units/L (12-78) 05/12/18 11:50 Alkaline Phosphatase 65 Units/L (46-116) 05/12/18 11:50 Creatine Kinase 429 Units/L (26-192) H 05/12/18 11:50 CK-MB (CK-2) 1.7 ng/mL (0-4.0) 05/12/18 11:50 CK/CKMB % Calc 0.4 % (<4) 05/12/18 11:50 Troponin I 0.11 ng/mL (0-1.5) 05/12/18 11:50 C-Reactive Protein > 250.00 mg/L (0-3.0) H 05/12/18 11:50 Total Protein 7.4 g/dL (6.4-8.2) 05/12/18 11:50 Albumin 2.9 g/dL (3.4-5.0) L 05/12/18 11:50 Globulin 4.5 g/dL (2.5-4.5) 05/12/18 11:50 Albumin/Globulin Ratio 0.6 Ratio (1.1-2.1) L 05/12/18 11:50 TSH 3rd Generation 2.722 uIU/mL (0.358-3.74) 05/12/18 11:50 Specimen Type Catherized urine 05/12/18 13:40 Urine Color Yellow (YELLOW) 05/12/18 13:40 Urine Appearance Slightly hazy (CLEAR) 05/12/18 13:40 Urine pH 5.0 (5.0 - 8.0) 05/12/18 13:40 Ur Specific [place] 1.020 (1.000-1.030) 05/12/18 13:40 Urine Protein 3+ (NEGATIVE) 05/12/18 13:40 Urine Glucose (UA) Negative (NEGATIVE) 05/12/18 13:40 Urine Ketones Negative (NEGATIVE) 05/12/18 13:40 Urine Occult Blood 2+ (NEGATIVE) 05/12/18 13:40 Urine Nitrite Negative (NEGATIVE) 05/12/18 13:40 Urine Bilirubin 1+ (NEGATIVE) 05/12/18 13:40 Urine Urobilinogen Normal (NORMAL) 05/12/18 13:40 Ur Leukocyte Esterase 1+ (NEGATIVE) 05/12/18 13:40 Urine RBC 5-10 /HPF (NONE SEEN) 05/12/18 13:40 Urine WBC 3-5 /HPF (NONE SEEN) 05/12/18 13:40 Ur Squamous Epith Cells Moderate /HPF (NEGATIVE) 05/12/18 13:40 Amorphous Sediment 2+ /HPF (NEGATIVE) 05/12/18 13:40 Urine Bacteria 1+ /HPF (NEGATIVE) 05/12/18 13:40 Hyaline Casts Few /LPF (NEGATIVE) 05/12/18 13:40 Ur Culture Indicated? No/not indicated 05/12/18 13:40 Other Results Comments: CT Cervical Spine: No evidence of acute cervical spine fracture or subluxation. Multilevel cervical spondylosis. CT Brain: No evidence of acute intracranial abnormality. 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 Nonspecific white matter change. XRAY XRAY Interpreted by: Radiologist XRAY Findings: Chest X Ray: No acute cardiopulmonary disease Diagnosis Discharge Problem: Acute prerenal azotemia, Dehydration, Metabolic acidosis, Bandemia
[2018-05-12] MEDS ORDERED: NS 1000 ML 1,000 ML ONE ×2 (11:53→13:14)
[2018-05-12 12:01] LABS: BASOPHILS # (AUTO) 0.1 X10^3/uL (0.0-0.1); BASOPHILS % (AUTO) 0.4 % (0.2-1.0); HEMATOCRIT 43.5 % (36.0-47.0); HEMOGLOBIN 14.7 g/dL (12.0-16.0); LYMPHOCYTES # (AUTO) 1.3 X10^3/uL (1.3-2.9); LYMPHOCYTES % (AUTO) 5.2 % (21.0-51.0); MEAN CORPUSCULAR HEMOGLOBIN 29.5 pg (27.0-34.0); MEAN CORPUSCULAR HGB CONC 33.7 g/dL (33.0-35.0); MEAN CORPUSCULAR VOLUME 87.4 fL (80.0-100.0); MEAN PLATELET VOLUME 8.2 fL (7.4-11.0); MONOCYTES # (AUTO) 1.1 x10^3/uL (0.3-0.8); MONOCYTES % (AUTO) 4.3 % (0.0-13.0); NEUTROPHILS # (AUTO) 22.9 x10^3/uL (2.2-4.8); NEUTROPHILS % (AUTO) 90.1 % (42.0-75.0); PLATELET COUNT 231 X10^3/uL (150.0-450.0); RED BLOOD COUNT 4.98 X10^6/uL (3.5-5.4); RED CELL DISTRIBUTION WIDTH 14.8 % (11.6-16.5); WHITE BLOOD COUNT 25.4 X10^3/uL (3.6-10.0)
[2018-05-12 12:17] LABS: BLOOD UREA NITROGEN 54 mg/dL (7-18); CALCIUM 8.4 mg/dL (8.5-10.1); CARBON DIOXIDE 19.5 mmol/L (21-32); CHLORIDE 98 mmol/L (98-107); COR NA(FOR HYPERGLY) 136 mmol/L (136-145); SODIUM 135 mmol/L (136-145); TROPONIN I 0.11 ng/mL (0-1.5); eGFR NON BLACK RACES 11 (>60)
[2018-05-12 12:22] LABS: ALANINE AMINOTRANSFERASE 57 Units/L (12-78); ALBUMIN 2.9 g/dL (3.4-5.0); ALKALINE PHOSPHATASE 65 Units/L (46-116); ASPARTATE AMINO TRANSFERASE 63 Units/L (15-37); CKMB % 0.4 % (<4); COR CA(FOR HYPOALB) 9.3 mg/dL (8.5-10.1); CREATINE KINASE 429 Units/L (26-192); CREATINE KINASE MB 1.7 ng/mL (0-4.0); TOTAL PROTEIN 7.4 g/dL (6.4-8.2); TSH (3RD GENERATION) 2.722 uIU/mL (0.358-3.74)
[2018-05-12 12:28] LABS: BAND NEUTROPHILS % 20 % (0-10); PLATELET MORPHOLOGY COMMENT NORMAL (NORMAL)
--- NOTE | 2018-05-12 12:49 | CT ---
STUDY: CT HEAD WITHOUT CONTRAST HISTORY: Weakness. Falling. Vomiting x1. Pain into in knees and back from fall. COMPARISON: Head CT from September 25, 2016. TECHNIQUE: Multiple axial images of the head were obtained from the skull base to the vertex without administration of IV contrast. Automated exposure control (AEC) was utilized to adjust the MA and/or kV. Findings: The sulci, cisterns and ventricles are age appropriate. There are scattered foci of low attenuation in the periventricular and subcortical white matter of both hemispheres. This is a nonspecific finding which likely represents microangiopathic change in a patient of this age. There are old lacunar infarcts in the basal ganglia. There is no evidence of acute territorial infarction, hemorrhage, mass, mass effect or midline shift. There are no abnormal extra-axial fluid collections. There is no evidence of acute osseous abnormality or significant soft tissue swelling. IMPRESSION: 1. No evidence of acute intracranial abnormality. 2. 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 3. Nonspecific white matter change. 4. If there is strong clinical concern for acute infarction, then an MRI examination of the brain could be performed for further evaluation. However, if there are no deficits on neurologic exam, there are no abnormalities identified on this study which require immediate imaging follow-up on an emergent basis. Follow-up MRI could be considered on an outpatient basis as clinically warranted. Reported By:
--- NOTE | 2018-05-12 12:56 | CT ---
STUDY: CT OF THE CERVICAL SPINE HISTORY: Neck pain. Technique: Multiple axial images of the cervical spine were obtained from the skull base to the thoracic inlet without administration of IV contrast. Sagittal and coronal reformats were performed and reviewed. Automated exposure control (AEC) was utilized to adjust the MA and/or kV. Comparison: None. Findings: There is multilevel degenerative disc disease and degenerative endplate change, probably most notable at C5/6. There is no evidence of acute fracture or subluxation. Facet alignment is within normal limits bilaterally. There is multilevel facet arthropathy. The spinous processes are intact. There is no significant prevertebral soft tissue swelling. The lateral masses of C1, and the C1/C2 relationship are normal. The odontoid process is intact. The occipital condyles and their relationship with C1 are normal. IMPRESSION: 1. No evidence of acute cervical spine fracture or subluxation. 2. Multilevel cervical spondylosis. Reported By:
[2018-05-12] MEDS ORDERED: MORPHINE SULFATE INJ 4 MG IVP ONE (13:16)
[2018-05-12] MEDS: NS 1000 ML 1,000 ML IV SCH ×2 (13:17→22:05)
[2018-05-12] MEDS ORDERED: MORPHINE SULFATE INJ 4 MG ONE (13:18)
[2018-05-12 13:51] LABS: BILIRUBIN,URINE 1+ (NEGATIVE); BLOOD/HEMOGLOBIN,URINE 2+ (NEGATIVE); GLUCOSE, URINE NEGATIVE (NEGATIVE); KETONES,URINE NEGATIVE (NEGATIVE); LEUKOCYTE ESTERASE ,URINE 1+ (NEGATIVE); NITRITES,URINE NEGATIVE (NEGATIVE); PROTEIN,URINE 3+ (NEGATIVE); UROBILINOGEN,URINE NORMAL (NORMAL)
[2018-05-12 14:00] LABS: AMORPHOUS SEDIMENT,UR 2+ /HPF (NEGATIVE); APPEARANCE,URINE SLIGHTLY HAZY (CLEAR); BACTERIA,URINE 1+ /HPF (NEGATIVE); COLOR,URINE YELLOW (YELLOW); HYALINE CASTS, URINE FEW /LPF (NEGATIVE); SQUAMOUS EPITHELIAL CELL,UR MODERATE /HPF (NEGATIVE)
[2018-05-12] MEDS ORDERED: LEVAQUIN PREMIX IV 750 MG 750 MG/150 ML BAG IV ONE (14:23)
--- NOTE | 2018-05-12 14:33 | RAD ---
HISTORY: Short of breath renal failure Study: AP portable chest Comparison: Chest CT 11/26/2017. One-view chest 11/25/2017 Technique: AP portable chest Findings: Soft tissues and bony thorax are normal. EKG leads overlie the thorax. Heart size airway vascularity are normal. Lungs are clear without infiltrates or effusions. IMPRESSION: 1. No acute cardiopulmonary abnormalities on AP chest. 2. No interval change from the last film 11/25/2017 Reported By:
[2018-05-12] MEDS ORDERED: ANTIVERT TAB 25 MG PO PRN (14:55)
[2018-05-12] MEDS ORDERED: ZOFRAN TAB 4 MG PO PRN (14:55)
[2018-05-12] MEDS ORDERED: NS 1000 ML 1,000 ML IV SCH (15:00)
[2018-05-12] MEDS ORDERED: PROVENTIL NEB TX 0.083% 2.5MG/ 3ML NEB ONE (15:01)
[2018-05-12] MEDS ORDERED: PROVENTIL NEB TX 0.083% 2.5MG/ 3ML ONE (15:05)
[2018-05-12] MEDS ORDERED: ZITHROMAX INJ 500 MG VIAL 500 MG in NS 250 ML IV 250 ML IV SCH (16:00)
[2018-05-12] MEDS ORDERED: ZOFRAN INJ 4 MG VIAL ONE (17:31)
[2018-05-12] MEDS: FORTAZ or TAZICEF VIAL INJ IVP SCH (17:38)
[2018-05-12] MEDS: ZOFRAN INJ 4 MG VIAL IVP PRN ×2 (17:39→23:41)
[2018-05-12] MEDS: RESTORIL CAP 15 MG PO PRN (20:14)
[2018-05-12] MEDS: PERCOCET TAB 5/325 MG PO PRN (20:20)
[2018-05-12] MEDS ORDERED: TEMAZEPAM 30 MG PO SCH (21:00)
[2018-05-12] MEDS ORDERED: PATIENT'S HOME MEDICATION (Meloxicam [Meloxicam] 7.5 MG) PO SCH (21:00)
[2018-05-12] MEDS: VOLTAREN 1 % GEL MULTI DOSE TUBE TOP PRN (21:35)
[2018-05-12] MEDS ORDERED: GLUCOPHAGE PO SCH (22:00)
[2018-05-13 05:14] LABS: BASOPHILS # (AUTO) 0.1 X10^3/uL (0.0-0.1); BASOPHILS % (AUTO) 0.4 % (0.2-1.0); EOSINOPHILS % (AUTO) 0.1 % (0.9-2.9); HEMATOCRIT 36.8 % (36.0-47.0); HEMOGLOBIN 12.2 g/dL (12.0-16.0); LYMPHOCYTES # (AUTO) 0.7 X10^3/uL (1.3-2.9); LYMPHOCYTES % (AUTO) 4.3 % (21.0-51.0); MEAN CORPUSCULAR HEMOGLOBIN 29.3 pg (27.0-34.0); MEAN CORPUSCULAR HGB CONC 33.3 g/dL (33.0-35.0); MEAN CORPUSCULAR VOLUME 88.2 fL (80.0-100.0); MEAN PLATELET VOLUME 8.3 fL (7.4-11.0); MONOCYTES # (AUTO) 0.8 x10^3/uL (0.3-0.8); MONOCYTES % (AUTO) 4.6 % (0.0-13.0); NEUTROPHILS # (AUTO) 15.5 x10^3/uL (2.2-4.8); NEUTROPHILS % (AUTO) 90.6 % (42.0-75.0); PLATELET COUNT 194 X10^3/uL (150.0-450.0); RED BLOOD COUNT 4.17 X10^6/uL (3.5-5.4); RED CELL DISTRIBUTION WIDTH 14.9 % (11.6-16.5)
[2018-05-13] MEDS: VISTARIL PO PRN (05:31)
[2018-05-13] MEDS: NS 1000 ML 1,000 ML IV SCH ×3 (05:31→21:09)
[2018-05-13 05:33] LABS: ALANINE AMINOTRANSFERASE 38 Units/L (12-78); ALBUMIN 2.5 g/dL (3.4-5.0); ALKALINE PHOSPHATASE 50 Units/L (46-116); ASPARTATE AMINO TRANSFERASE 40 Units/L (15-37); BLOOD UREA NITROGEN 58 mg/dL (7-18); CALCIUM 6.9 mg/dL (8.5-10.1); CARBON DIOXIDE 20.8 mmol/L (21-32); CHLORIDE 103 mmol/L (98-107); COR CA(FOR HYPOALB) 8.1 mg/dL (8.5-10.1); COR NA(FOR HYPERGLY) 137 mmol/L (136-145); CREATINE KINASE 226 Units/L (26-192); CREATINE KINASE MB 2.2 ng/mL (0-4.0); SODIUM 136 mmol/L (136-145); TOTAL PROTEIN 6.1 g/dL (6.4-8.2); TROPONIN I 0.03 ng/mL (0-1.5); eGFR NON BLACK RACES 17 (>60)
[2018-05-13 05:41] LABS: LACTIC ACID 1.4 mmol/L (0.4-2.0)
[2018-05-13 05:45] LABS: WHITE BLOOD COUNT 17.1 X10^3/uL (3.6-10.0)
[2018-05-13 05:46] LABS: BAND NEUTROPHILS % 5 % (0-10); PLATELET MORPHOLOGY COMMENT NORMAL (NORMAL)
[2018-05-13] MEDS ORDERED: ZOLOFT PO ONE (08:18)
[2018-05-13] MEDS: ZOLOFT PO SCH (08:44)
[2018-05-13] MEDS: PROTONIX TAB 40 MG PO SCH (08:44)
[2018-05-13] MEDS: FORTAZ or TAZICEF VIAL INJ IVP SCH (08:44)
[2018-05-13] MEDS: CRESTOR TAB 10 MG PO SCH (08:44)
[2018-05-13] MEDS ORDERED: LEVAQUIN PREMIX IV 750 MG 750 MG/150 ML BAG IV SCH (09:00)
[2018-05-13] MEDS ORDERED: RESTORIL CAP 30 MG PO SCH (09:00)
[2018-05-13] MEDS ORDERED: NS 1000 ML 2,000 ML IV ONE (09:45)
[2018-05-13] MEDS: XANAX PO SCH ×2 (10:18→20:56)
[2018-05-13] MEDS: LIPITOR TAB 10 MG PO SCH (10:18)
[2018-05-13] MEDS: SYNTHROID 75 mcg TAB PO SCH (10:18)
[2018-05-13] MEDS: TORADOL 15 MG VIAL IVP PRN (13:39)
--- NOTE | 2018-05-13 16:12 | CT ---
HISTORY: Flank pain, weakness, renal failure Study: CT abdomen and pelvis without contrast Comparison: 11/26/2017 Technique: Multiple axial images of the abdomen and pelvis were obtained without IV contrast. Dose reduction techniques including Automated Exposure Control (AEC) and adjustment of mA and kV were utilized. Findings: Please note evaluation is limited without use of IV contrast. There is atelectasis at bilateral bases. There is borderline hepatic steatosis. There is a stable hypodensity in the left hepatic possibly representing a cyst. The unenhanced spleen, pancreas, adrenal glands are unremarkable. Gallbladder is removed. No renal calculi or obstructive uropathy identified. There is mild bilateral perinephric stranding that can be seen with chronic renal insufficiency and appears similar from prior exam. No free intraperitoneal air. No evidence of intestinal obstruction or inflammation. Not visualized. No ascites. There are degenerative changes lumbosacral spine. Limited evaluation of vascular structures due to lack of contrast. No pathologically enlarged lymph nodes are identified. Uterus is removed. Urinary bladder is unremarkable. IMPRESSION: 1. No renal calculi or obstructive uropathy. 2. Mild bilateral perinephric stranding that can be seen with chronic renal insufficiency. Reported By:
--- NOTE | 2018-05-13 20:49 | DR.H&P ---
H&P - History & Physical for Day of: H&P Date: 05/12/18 - Chief Complaint Chief Complaint: WEAKNESS, FALLS, FEVER, VOMITING, DECREASED BLOOD PRESSURE - History of Present Illness History of Present Illness: IS A 72 YEAR OLD PATIENT OF OURS WHO PRESENTED TO THE ER WITH COMPLAINTS OF WEAKNESS, FALLS, FEVER, VOMITING, AND DECREASED BLOOD PRESSURE. SHE ALSO REPORT BILATERAL KNEE PAIN, LOWER BACK PAIN, AND NECK PAIN AFTER FALLING. ON ARRIVAL, VITALS WERE 99.9-112-20-97%-114/53. LABS WERE OBTAINED. ABNORMAL LAB VALUES INCLUDE THE FOLLOWING: WBC 25.4, CARBON DIOXIDE 20.8, BUN 58, CREATININE 2.90, GLUCOSE 154, CALCIUM 6.9, AST 40, CREATINE KINASE 226, CRP >250.00, TOTAL PROTEIN 6.1, ALBUMIN 2.5. URINALYSIS REVEALED WBC 3-5, RBC 5-10, BACTERIA 1+, LEUKOCYTES 1+. INFLUENZA NEGATIVE. BRAIN CT REVEALED: No evidence of acute intracranial abnormality. 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 Nonspecific white matter change. A NECK CT WAS OBTAINED AND REVEALED: No evidence of acute cervical spine fracture or subluxation. Multilevel cervical spondylosis. CHEST XRAY OBTAINED AND REVEALED: No acute cardiopulmonary abnormalities on AP chest. No interval change from the last film 11/25/2017. SHE WAS GIVEN A NORMAL SALINE BOLUS, FORTAZ 0.5GM IV X 1 DOSE, ZITHROMAX 250MG IV X 1 DOSE, AND LEVAQUIN 750MG IV X 1 DOSE IN THE ER. SHE WAS ADMITTED FOR FURTHER EVALUATION AND TREATMENT OF PRERENAL AZOTEMIA, DEHYDRATION, RULE OUT SEPSIS. SHE WAS STARTED ON NORMAL SALINE AT 125ML/HR. WE PLAN TO FOLLOW UP WITH AM LABS AND CONTINUE TO MONITOR. - Past Medical History Past Medical History: Hypertension, Diabetes, Hypothyroidism - Past Surgical History Surgical History: Cholecystectomy, Hysterectomy - Family History Family Medical History: Coronary Artery Disease, Hypertension - Social History Does patient currently use any type of tobacco product: Yes Have you used tobacco products in the last 12 months: No Type of Tobacco Use: None Does any household member use tobacco: No Alcohol Use: None Drug Use: Prescription Drugs - Medications Home Medications: amoxicillin Allergy (Verified 11/25/17 17:38) codeine Allergy (Verified 11/25/17 18:09) levofloxacin [From Levaquin] Allergy (Verified 05/12/18 15:12) nitrofurantoin [From Macrobid] Allergy (Verified 11/25/17 17:38) Sulfa (Sulfonamide Antibiotics) [SULFA] Allergy (Verified 11/25/17 17:38) CONTINUE taking the following medications alprazolam 1 mg PO BID 05/12/18 [History] atorvastatin 10 mg PO DAILY 05/12/18 [History] cyclobenzaprine 10 mg PO Q8H PRN 05/12/18 [History] diclofenac sodium [Voltaren] 1 applic TOPICAL DAILY PRN 05/12/18 [History] levothyroxine 75 mg PO BID 05/12/18 [History] meloxicam 7.5 mg PO BID 05/12/18 [History] ondansetron 4 mg PO TID PRN 05/12/18 [History] rosuvastatin 10 mg PO HS 05/12/18 [History] sertraline 100 mg PO DAILY 05/12/18 [History] temazepam 30 mg PO HS 05/12/18 [History] - Review of Systems Constitutional: See HPI, Fever, Chills, Weakness Eyes: No Symptoms Reported ENT: No Symptoms Reported Respiratory: Shortness of Breath Cardiovascular: No Symptoms Reported Gastrointestinal: See HPI, Nausea, Vomiting, Abdominal Pain Genitourinary: No Symptoms Reported Musculoskeletal: See HPI, Back Pain, Neck Pain, Other (BILATERAL KNEE PAIN ) Skin: No Symptoms Reported Neurological: Weakness - Physical Exam Vital Signs: Temperature 97.8 F Pulse Rate [Right Brachial] 85 Pulse Rate 105 Respiratory Rate 18 Blood Pressure [Right Arm] 103/55 Blood Pressure [Left Arm] 99/56 Blood Pressure 114/53 O2 Sat by Pulse Oximetry 94 Oriented: Normal Eyes: Normal Ear: Normal Nose: Normal Throat: Normal Respiratory: Diminished Throughout Cardiovascular: Tachycardia. negative: S3, S4, Murmur, Edema : Normal Auscultation: Bowel Sounds: Normal Palpation: Normal Tenderness: Diffuse, Moderate. negative: Rebound, Guarding, Rigidity Skin: Normal Musculoskeletal: Right, Left, Knee, Back:Thoracic, Back:Lumbar Psychiatric: Normal Mood Description: Calm Affect: Normal Speech Pattern: Clear - Assessment/Plan (1) Acute prerenal azotemia Status: Acute Plan: ADMIT, NORMAL SALINE AT 125ML/HR, CONTINUE TO MONITOR (2) Dehydration Status: Acute Plan: NORMAL SALINE AT 125ML/HR, CONTINUE TO MONITOR (3) Sepsis Qualifiers: Sepsis type: sepsis due to unspecified organism Status: Acute Plan: FORTAZ 1GM IV DAILY, CONTINUE TO MONITOR - Allergies Allergies/Adverse Reactions: Allergies Allergy/AdvReac Type Severity Reaction Status Date / Time amoxicillin Allergy Verified 11/25/17 17:38 codeine Allergy Verified 11/25/17 18:09 levofloxacin [From Levaquin] Allergy Verified 05/12/18 15:12 nitrofurantoin Allergy Verified 11/25/17 17:38 [From Macrobid] Sulfa (Sulfonamide Allergy Verified 11/25/17 17:38 Antibiotics) [SULFA]
[2018-05-13] MEDS: RESTORIL CAP 15 MG PO PRN (20:56)
[2018-05-13] MEDS: VOLTAREN 1 % GEL MULTI DOSE TUBE TOP PRN (20:58)
[2018-05-13] MEDS: PERCOCET TAB 5/325 MG PO PRN (21:03)
[2018-05-14] MEDS: NS 1000 ML 1,000 ML IV SCH ×3 (04:03→20:23)
[2018-05-14] MEDS: TORADOL 15 MG VIAL IVP PRN ×2 (05:57→20:25)
[2018-05-14] MEDS: ZOFRAN INJ 4 MG VIAL IVP PRN (05:58)
[2018-05-14 06:40] LABS: BASOPHILS # (AUTO) 0.1 X10^3/uL (0.0-0.1); BASOPHILS % (AUTO) 0.9 % (0.2-1.0); EOSINOPHILS # (AUTO) 0.2 x10^3/uL (0.0-0.2); EOSINOPHILS % (AUTO) 1.7 % (0.9-2.9); HEMATOCRIT 34.3 % (36.0-47.0); HEMOGLOBIN 11.6 g/dL (12.0-16.0); LYMPHOCYTES # (AUTO) 0.8 X10^3/uL (1.3-2.9); LYMPHOCYTES % (AUTO) 9.5 % (21.0-51.0); MEAN CORPUSCULAR HEMOGLOBIN 29.9 pg (27.0-34.0); MEAN CORPUSCULAR HGB CONC 33.8 g/dL (33.0-35.0); MEAN CORPUSCULAR VOLUME 88.5 fL (80.0-100.0); MEAN PLATELET VOLUME 8.6 fL (7.4-11.0); MONOCYTES # (AUTO) 0.3 x10^3/uL (0.3-0.8); MONOCYTES % (AUTO) 3.9 % (0.0-13.0); NEUTROPHILS # (AUTO) 7.5 x10^3/uL (2.2-4.8); PLATELET COUNT 147 X10^3/uL (150.0-450.0); RED BLOOD COUNT 3.88 X10^6/uL (3.5-5.4); RED CELL DISTRIBUTION WIDTH 14.9 % (11.6-16.5); WHITE BLOOD COUNT 8.9 X10^3/uL (3.6-10.0)
[2018-05-14 07:04] LABS: ALANINE AMINOTRANSFERASE 30 Units/L (12-78); ALBUMIN 2.5 g/dL (3.4-5.0); ALKALINE PHOSPHATASE 61 Units/L (46-116); ASPARTATE AMINO TRANSFERASE 35 Units/L (15-37); BLOOD UREA NITROGEN 40 mg/dL (7-18); CARBON DIOXIDE 15.8 mmol/L (21-32); CHLORIDE 114 mmol/L (98-107); COR CA(FOR HYPOALB) 9.2 mg/dL (8.5-10.1); CREATININE 1.51 mg/dL (0.55-1.02); SODIUM 149 mmol/L (136-145); TOTAL PROTEIN 6.2 g/dL (6.4-8.2); eGFR NON BLACK RACES 36 (>60)
[2018-05-14 07:06] LABS: LACTIC ACID 1.3 mmol/L (0.4-2.0)
[2018-05-14] MEDS ORDERED: ZOLOFT PO ONE (08:19)
[2018-05-14] MEDS ORDERED: NS 100 ML IV + SPIKE MINIBAG* 100 ML IV ONE (08:20)
[2018-05-14] MEDS: FORTAZ or TAZICEF VIAL INJ IVP SCH (08:37)
[2018-05-14] MEDS: XANAX PO SCH ×2 (08:38→20:24)
[2018-05-14] MEDS: LIPITOR TAB 10 MG PO SCH (08:38)
[2018-05-14] MEDS: SYNTHROID 75 mcg TAB PO SCH (08:38)
[2018-05-14] MEDS: PROTONIX TAB 40 MG PO SCH (08:39)
[2018-05-14] MEDS: ZOLOFT PO SCH (08:39)
[2018-05-14] MEDS: CRESTOR TAB 10 MG PO SCH (08:39)
--- NOTE | 2018-05-14 12:03 | RAD ---
Examination: AP chest History: Cough and wheezing Comparison 05/12/2018 Findings: Continued normal heart size. There is an interval increase in diffuse interstitial disease when compared to several prior studies. No localized consolidation, mass or large pleural effusion is noted. Impression: Increasing bilateral interstitial pulmonary process as noted. If patient has history of heart disease, this probably represents developing edema. Otherwise, probable COPD and interstitial fibrosis with superimposed acute inflammatory component. Correlate clinically. Reported By:
[2018-05-14] MEDS: DUONEB 0.5 MG/3 MG NEB SCH ×3 (12:07→21:13)
[2018-05-14] MEDS ORDERED: LASIX IVP ONE (12:20)
[2018-05-14] MEDS ORDERED: NS 1000 ML 1,000 ML IV SCH (13:00)
[2018-05-14] MEDS: PERCOCET TAB 5/325 MG PO PRN (15:28)
[2018-05-14] MEDS: RESTORIL CAP 15 MG PO PRN (20:25)
[2018-05-14] MEDS: VISTARIL PO PRN (20:25)
[2018-05-14] MEDS: VOLTAREN 1 % GEL MULTI DOSE TUBE TOP PRN (20:34)
[2018-05-15] MEDS: NS 1000 ML 1,000 ML IV SCH ×2 (06:26→20:46)
[2018-05-15] MEDS: PERCOCET TAB 5/325 MG PO PRN (06:30)
[2018-05-15] MEDS: VISTARIL PO PRN ×2 (06:30→15:06)
[2018-05-15 06:40] LABS: BASOPHILS % (AUTO) 0.8 % (0.2-1.0); EOSINOPHILS # (AUTO) 0.1 x10^3/uL (0.0-0.2); EOSINOPHILS % (AUTO) 2.6 % (0.9-2.9); HEMATOCRIT 32.1 % (36.0-47.0); HEMOGLOBIN 10.8 g/dL (12.0-16.0); LYMPHOCYTES # (AUTO) 1.2 X10^3/uL (1.3-2.9); LYMPHOCYTES % (AUTO) 24.7 % (21.0-51.0); MEAN CORPUSCULAR HGB CONC 33.8 g/dL (33.0-35.0); MEAN CORPUSCULAR VOLUME 88.7 fL (80.0-100.0); MEAN PLATELET VOLUME 8.6 fL (7.4-11.0); MONOCYTES # (AUTO) 0.4 x10^3/uL (0.3-0.8); MONOCYTES % (AUTO) 8.2 % (0.0-13.0); NEUTROPHILS # (AUTO) 3.1 x10^3/uL (2.2-4.8); NEUTROPHILS % (AUTO) 63.7 % (42.0-75.0); PLATELET COUNT 125 X10^3/uL (150.0-450.0); RED BLOOD COUNT 3.61 X10^6/uL (3.5-5.4); WHITE BLOOD COUNT 4.8 X10^3/uL (3.6-10.0)
[2018-05-15 06:44] LABS: ALANINE AMINOTRANSFERASE 23 Units/L (12-78); ALBUMIN 2.3 g/dL (3.4-5.0); ALKALINE PHOSPHATASE 47 Units/L (46-116); ASPARTATE AMINO TRANSFERASE 24 Units/L (15-37); BLOOD UREA NITROGEN 27 mg/dL (7-18); CALCIUM 8.2 mg/dL (8.5-10.1); CARBON DIOXIDE 22.6 mmol/L (21-32); CHLORIDE 110 mmol/L (98-107); COR CA(FOR HYPOALB) 9.6 mg/dL (8.5-10.1); CREATININE 1.03 mg/dL (0.55-1.02); SODIUM 141 mmol/L (136-145); TOTAL PROTEIN 5.9 g/dL (6.4-8.2); eGFR NON BLACK RACES 56 (>60)
--- NOTE | 2018-05-15 08:34 | RAD ---
Examination: Portable AP chest History: Cough SOB Comparison 05/14/2018 Findings: Continued normal heart size. Diffuse bilateral interstitial process is similar to 1 day earlier. No developing consolidation, pneumothorax or pleural disease. Impression: No change. Stable interstitial process may represent any combination of chronic peribronchial thickening and a more acute congestive/ inflammatory process. Reported By:
[2018-05-15] MEDS: FORTAZ or TAZICEF VIAL INJ IVP SCH (08:55)
[2018-05-15] MEDS: PROTONIX TAB 40 MG PO SCH (08:55)
[2018-05-15] MEDS: XANAX PO SCH ×2 (08:55→20:43)
[2018-05-15] MEDS: SYNTHROID 75 mcg TAB PO SCH (08:55)
[2018-05-15] MEDS: LIPITOR TAB 10 MG PO SCH (08:55)
[2018-05-15] MEDS: CRESTOR TAB 10 MG PO SCH (08:55)
[2018-05-15] MEDS ORDERED: ZOLOFT PO ONE (08:57)
[2018-05-15] MEDS ORDERED: NS 100 ML IV + SPIKE MINIBAG* 100 ML IV ONE (08:57)
[2018-05-15] MEDS: ZOLOFT PO SCH (08:58)
[2018-05-15] MEDS: VOLTAREN 1 % GEL MULTI DOSE TUBE TOP PRN ×2 (09:01→20:52)
[2018-05-15] MEDS: DUONEB 0.5 MG/3 MG NEB PRN ×2 (09:26→17:02)
[2018-05-15] MEDS: BENADRYL CREAM 2% TOP PRN ×2 (16:20→20:46)
[2018-05-15] MEDS: RESTORIL CAP 15 MG PO PRN (20:43)
[2018-05-15] MEDS: TORADOL 15 MG VIAL IVP PRN (20:43)
[2018-05-16] MEDS: PERCOCET TAB 5/325 MG PO PRN (02:57)
[2018-05-16 06:50] LABS: BASOPHILS # (AUTO) 0.1 X10^3/uL (0.0-0.1); EOSINOPHILS # (AUTO) 0.3 x10^3/uL (0.0-0.2); EOSINOPHILS % (AUTO) 4.8 % (0.9-2.9); HEMATOCRIT 29.4 % (36.0-47.0); HEMOGLOBIN 10.1 g/dL (12.0-16.0); LYMPHOCYTES # (AUTO) 1.8 X10^3/uL (1.3-2.9); LYMPHOCYTES % (AUTO) 25.9 % (21.0-51.0); MEAN CORPUSCULAR HEMOGLOBIN 30.5 pg (27.0-34.0); MEAN CORPUSCULAR HGB CONC 34.6 g/dL (33.0-35.0); MEAN CORPUSCULAR VOLUME 88.3 fL (80.0-100.0); MONOCYTES # (AUTO) 0.6 x10^3/uL (0.3-0.8); MONOCYTES % (AUTO) 8.4 % (0.0-13.0); NEUTROPHILS # (AUTO) 4.1 x10^3/uL (2.2-4.8); NEUTROPHILS % (AUTO) 59.9 % (42.0-75.0); PLATELET COUNT 144 X10^3/uL (150.0-450.0); RED BLOOD COUNT 3.32 X10^6/uL (3.5-5.4); RED CELL DISTRIBUTION WIDTH 14.4 % (11.6-16.5); WHITE BLOOD COUNT 6.9 X10^3/uL (3.6-10.0)
[2018-05-16 07:11] LABS: ALANINE AMINOTRANSFERASE 23 Units/L (12-78); ALBUMIN 2.3 g/dL (3.4-5.0); ALKALINE PHOSPHATASE 49 Units/L (46-116); ASPARTATE AMINO TRANSFERASE 24 Units/L (15-37); BLOOD UREA NITROGEN 15 mg/dL (7-18); CALCIUM 8.1 mg/dL (8.5-10.1); CARBON DIOXIDE 22.6 mmol/L (21-32); CHLORIDE 108 mmol/L (98-107); COR CA(FOR HYPOALB) 9.5 mg/dL (8.5-10.1); COR NA(FOR HYPERGLY) 140 mmol/L (136-145); CREATININE 0.81 mg/dL (0.55-1.02); SODIUM 140 mmol/L (136-145); TOTAL PROTEIN 5.9 g/dL (6.4-8.2); eGFR NON BLACK RACES > 60 (>60)
[2018-05-16] MEDS ORDERED: ZOLOFT PO ONE (08:28)
[2018-05-16] MEDS: FORTAZ or TAZICEF VIAL INJ IVP SCH (09:14)
[2018-05-16] MEDS: LIPITOR TAB 10 MG PO SCH (09:15)
[2018-05-16] MEDS: PROTONIX TAB 40 MG PO SCH (09:15)
[2018-05-16] MEDS: ZOLOFT PO SCH (09:15)
[2018-05-16] MEDS: SYNTHROID 75 mcg TAB PO SCH (09:15)
[2018-05-16] MEDS: XANAX PO SCH (09:15)
[2018-05-16 12:41] VITALS: BP 172/81
[2018-05-16] MEDS ORDERED: VALTREX PO SCH (13:00)
[2018-05-16] MEDS ORDERED: NEURONTIN CAP 100 MG PO SCH (13:00)
--- NOTE | 2018-05-16 13:59 | PCM.PROG ---
Progress Note - Progress Note for Day of Date of Exam: 05/15/18 - Subjective Subjective: 72 WF ER ADMISSION WITH ABDOMINAL PAIN N/V AND SEVERE DEHYDRATION WITH ACUTE ON CHRONIC RENAL FAILURE AND BRONCHITIS SYMPTOMS. SINCE ADMISSION PT HAS BEEN ON GENTLE IV HYDRATION AND IV ATBX WITH IMPROVEMENT IN ABDOMINAL PAIN AND N/V. PT HAD DIMISHED LUNG SOUNDS THIS AM, SINCE RENAL FUNCTION IS MUCH IMPROVED WE WILL GIVE LASIX IV X 1 DOSE THIS AM AND REPEAT AM LABS, DECREASED IV INFUSION RATE AND ENCOURAGE ORAL HYDRATION. - Past Medical Family Social History Past Med/Fam/Surg Hx: No changes since H&P Allergies: Allergies amoxicillin Allergy (Verified 11/25/17 17:38) codeine Allergy (Verified 11/25/17 18:09) levofloxacin [From Levaquin] Allergy (Verified 05/12/18 15:12) nitrofurantoin [From Macrobid] Allergy (Verified 11/25/17 17:38) Sulfa (Sulfonamide Antibiotics) [SULFA] Allergy (Verified 11/25/17 17:38) - Review of Systems ROS: No change since H&P - Vital Signs and I&O's Vital Signs: Temperature 98.6 F Pulse Rate [Right Brachial] 80 Pulse Rate 87 Respiratory Rate 20 Blood Pressure [Right Arm] 172/81 Blood Pressure [Left Arm] 99/56 Blood Pressure 114/53 O2 Sat by Pulse Oximetry 95 Intake and Output: Intake & Output 05/14/18 05/15/18 05/16/18 05/17/18 11:59 11:59 11:59 11:59 Intake Total 3520 / 3520 2320 / 2320 2150 / 2150 Output Total 850 / 850 2500 / 2500 Balance 3520 / 3520 1470 / 1470 -350 / -350 - Physical Exam Oriented: Normal Eyes: Normal Ear: Normal Nose: Normal Throat: Normal Respiratory: Diminished Cardiovascular: Normal. negative: S3, S4, Murmur, Edema : Normal Auscultation: Bowel Sounds: Normal Tenderness: Epigastric, Mild. negative: Rebound, Guarding, Rigidity Skin: Normal Musculoskeletal: Right, Left, Knee, Back:Thoracic, Back:Lumbar Psychiatric: Normal Mood Description: Calm Affect: Normal Speech Pattern: Clear - Laboratory and Diagnostics Result Diagrams: 05/16/18 05:27 05/16/18 05:27 Labs: 05/12/18 14:05 Blood Blood Culture - Preliminary 05/12/18 13:30 Blood Blood Culture - Preliminary Laboratory WBC 6.9 X10^3/uL (3.6-10.0) 05/16/18 05:27 RBC 3.32 X10^6/uL (3.5-5.4) L 05/16/18 05:27 Hgb 10.1 g/dL (12.0-16.0) L 05/16/18 05:27 Hct 29.4 % (36.0-47.0) L 05/16/18 05:27 MCV 88.3 fL (80.0-100.0) 05/16/18 05:27 MCH 30.5 pg (27.0-34.0) 05/16/18 05:27 MCHC 34.6 g/dL (33.0-35.0) 05/16/18 05:27 RDW 14.4 % (11.6-16.5) 05/16/18 05:27 Plt Count 144 X10^3/uL (150.0-450.0) L 05/16/18 05:27 Plt Count Comment Adequate (ADEQUATE) 05/13/18 04:35 MPV 9.0 fL (7.4-11.0) 05/16/18 05:27 Neut % (Auto) 59.9 % (42.0-75.0) 05/16/18 05:27 Lymph % (Auto) 25.9 % (21.0-51.0) 05/16/18 05:27 Pierce % (Auto) 8.4 % (0.0-13.0) 05/16/18 05:27 Eos % (Auto) 4.8 % (0.9-2.9) H 05/16/18 05:27 Baso % (Auto) 1.0 % (0.2-1.0) 05/16/18 05:27 Neut # (Auto) 4.1 x10^3/uL (2.2-4.8) 05/16/18 05:27 Lymph # (Auto) 1.8 X10^3/uL (1.3-2.9) 05/16/18 05:27 Pierce # (Auto) 0.6 x10^3/uL (0.3-0.8) 05/16/18 05:27 Eos # (Auto) 0.3 x10^3/uL (0.0-0.2) H 05/16/18 05:27 Baso # (Auto) 0.1 X10^3/uL (0.0-0.1) 05/16/18 05:27 Absolute Nucleated RBC 0.1 /100WBC 05/16/18 05:27 Total Counted 100 05/13/18 04:35 Neutrophils % (Manual) 86 % (39-76) H 05/13/18 04:35 Band Neutrophils % 5 % (0-10) 05/13/18 04:35 Lymphocytes % (Manual) 6 % (13-43) L 05/13/18 04:35 Monocytes % (Manual) 3 % (4-9) L 05/13/18 04:35 Nucleated RBCs Cancelled 05/14/18 05:36 Atypical Lymphocytes Cancelled 05/14/18 05:36 Blast Cells Cancelled 05/14/18 05:36 Smudge Cells Cancelled 05/14/18 05:36 Toxic Granulation Cancelled 05/14/18 05:36 Dohle Bodies Cancelled 05/14/18 05:36 Clotilde Rods Cancelled 05/14/18 05:36 Plt Clumps, EDTA Cancelled 05/14/18 05:36 Giant Platelets Cancelled 05/14/18 05:36 Plt Morphology Comment Normal (NORMAL) 05/13/18 04:35 RBC Morphology Normal (NORMAL) 05/13/18 04:35 Dimorphic RBCs Cancelled 05/14/18 05:36 Polychromasia Cancelled 05/14/18 05:36 Hypochromasia Cancelled 05/14/18 05:36 Poikilocytosis Cancelled 05/14/18 05:36 Basophilic Stippling Cancelled 05/14/18 05:36 Anisocytosis Cancelled 05/14/18 05:36 Microcytosis Cancelled 05/14/18 05:36 Macrocytosis Cancelled 05/14/18 05:36 Spherocytes Cancelled 05/14/18 05:36 Pappenheimer Bodies Cancelled 05/14/18 05:36 Sickle Cells Cancelled 05/14/18 05:36 Target Cells Cancelled 05/14/18 05:36 Tear Drop Cells Cancelled 05/14/18 05:36 Ovalocytes Cancelled 05/14/18 05:36 Stomatocytes Cancelled 05/14/18 05:36 Helmet Cells Cancelled 05/14/18 05:36 [place] Bodies Cancelled 05/14/18 05:36 [place] Rings Cancelled 05/14/18 05:36 Kar[place] Cells Cancelled 05/14/18 05:36 Crenated Cell Cancelled 05/14/18 05:36 Acanthocytes (Spur) Cancelled 05/14/18 05:36 Rouleaux Cancelled 05/14/18 05:36 Schistocytes Cancelled 05/14/18 05:36 Sodium 140 mmol/L (136-145) 05/16/18 05:27 Corrected Sodium 140 mmol/L (136-145) 05/16/18 05:27 Potassium 4.3 mmol/L (3.5-5.1) 05/16/18 05:27 Chloride 108 mmol/L (98-107) H 05/16/18 05:27 Carbon Dioxide 22.6 mmol/L (21-32) 05/16/18 05:27 BUN 15 mg/dL (7-18) 05/16/18 05:27 Creatinine 0.81 mg/dL (0.55-1.02) 05/16/18 05:27 Est GFR (MDRD) Af Amer > 60 (>60) 05/16/18 05:27 Est GFR (MDRD) Non-Af > 60 (>60) 05/16/18 05:27 Glucose 111 mg/dL (65-99) H 05/16/18 05:27 POC Glucose (mg/dL) 97 mg/dL (65-99) 05/16/18 11:32 Lactic Acid 1.3 mmol/L (0.4-2.0) 05/14/18 05:36 Calcium 8.1 mg/dL (8.5-10.1) L 05/16/18 05:27 Corrected Calcium 9.5 mg/dL (8.5-10.1) 05/16/18 05:27 Total Bilirubin 0.50 mg/dL (0.2-1.0) 05/16/18 05:27 AST 24 Units/L (15-37) 05/16/18 05:27 ALT 23 Units/L (12-78) 05/16/18 05:27 Alkaline Phosphatase 49 Units/L (46-116) 05/16/18 05:27 Creatine Kinase 226 Units/L (26-192) H 05/13/18 04:35 CK-MB (CK-2) 2.2 ng/mL (0-4.0) 05/13/18 04:35 CK/CKMB % Calc 1.0 % (<4) 05/13/18 04:35 Troponin I 0.03 ng/mL (0-1.5) 05/13/18 04:35 C-Reactive Protein > 250.00 mg/L (0-3.0) H 05/13/18 04:35 Total Protein 5.9 g/dL (6.4-8.2) L 05/16/18 05:27 Albumin 2.3 g/dL (3.4-5.0) L 05/16/18 05:27 Globulin 3.6 g/dL (2.5-4.5) 05/16/18 05:27 Albumin/Globulin Ratio 0.6 Ratio (1.1-2.1) L 05/16/18 05:27 TSH 3rd Generation 2.722 uIU/mL (0.358-3.74) 05/12/18 11:50 Specimen Type Catherized urine 05/12/18 13:40 Urine Color Yellow (YELLOW) 05/12/18 13:40 Urine Appearance Slightly hazy (CLEAR) 05/12/18 13:40 Urine pH 5.0 (5.0 - 8.0) 05/12/18 13:40 Ur Specific [place] 1.020 (1.000-1.030) 05/12/18 13:40 Urine Protein 3+ (NEGATIVE) 05/12/18 13:40 Urine Glucose (UA) Negative (NEGATIVE) 05/12/18 13:40 Urine Ketones Negative (NEGATIVE) 05/12/18 13:40 Urine Occult Blood 2+ (NEGATIVE) 05/12/18 13:40 Urine Nitrite Negative (NEGATIVE) 05/12/18 13:40 Urine Bilirubin 1+ (NEGATIVE) 05/12/18 13:40 Urine Urobilinogen Normal (NORMAL) 05/12/18 13:40 Ur Leukocyte Esterase 1+ (NEGATIVE) 05/12/18 13:40 Urine RBC 5-10 /HPF (NONE SEEN) 05/12/18 13:40 Urine WBC 3-5 /HPF (NONE SEEN) 05/12/18 13:40 Ur Squamous Epith Cells Moderate /HPF (NEGATIVE) 05/12/18 13:40 Amorphous Sediment 2+ /HPF (NEGATIVE) 05/12/18 13:40 Urine Bacteria 1+ /HPF (NEGATIVE) 05/12/18 13:40 Hyaline Casts Few /LPF (NEGATIVE) 05/12/18 13:40 Ur Culture Indicated? No/not indicated 05/12/18 13:40 Influenza Type A (PCR) Negative (NEGATIVE) 05/12/18 17:50 Influenza Type B (PCR) Negative (NEGATIVE) 05/12/18 17:50 - Plan (1) Acute prerenal azotemia Status: Acute Plan: REPEAT AM LABS, STRICT I & OS. NORMAL SALINE AT 50ML/HR, CONTINUE TO MONITOR (2) Dehydration Status: Acute (3) Nausea & vomiting Status: Acute (4) Chronic renal disease Status: Acute (5) UTI (urinary tract infection) Status: Acute (6) Bronchitis Status: Acute Plan: RESP THERAPY, IV ATBX
--- NOTE | 2018-05-16 15:48 | CT ---
HISTORY: Fall, right knee pain Study: CT of the right knee without contrast Comparison: None Technique: Multiple axial images were obtained without administration of IV contrast. Sagittal and coronal reformats were performed and reviewed. Dose reduction techniques including Automated Exposure Control (AEC) and adjustment of mA and kV were utilized. Findings: Alignment of the knee joint is normal. No evidence of acute fracture or dislocation. Extensor mechanism appears intact. No significant joint effusion identified. No articular surface erosions or loose bodies are identified. The surrounding soft tissues appear intact. IMPRESSION: 1. No acute osseous abnormality. Reported By:
== END 2018-05-16 15:40 | disposition home or self-care (01) | DRG 641 ==
LOC: ER 11:29 → MED/SURG 14:35
PROVIDERS: ADMIT Internal Medicine; ATTEND Internal Medicine
DX: E87.2 Acidosis; I48.91 Unspecified atrial fibrillation; N39.0 Urinary tract infection, site not specified; E86.0 Dehydration; M25.562 Pain in left knee; M54.2 Cervicalgia; R10.84 Generalized abdominal pain; R53.1 Weakness; N28.9 Disorder of kidney and ureter, unspecified; M54.89 Other dorsalgia; W18.39XA Other fall on same level, initial encounter; D72.825 Bandemia; R26.89 Other abnormalities of gait and mobility; M25.561 Pain in right knee; M79.7 Fibromyalgia; R79.89 Other specified abnormal findings of blood chemistry; J20.8 Acute bronchitis due to other specified organisms
CPT/HCPCS: 36415; 51702; 70450; 71010; 71045; 72125; 73700; 74176; 80053; 81001; 82550; 82553; 83605; 84443; 84484; 85025; 86140; 87040; 87502; 94640; 94760; 96365; 96367; 96374; 96375; 97110; 97162; 97167; 97535; 99283; 99284; A4216; A4222; Q0177; J0456; J0713; J1885; J1940; J1956; J2270; J2405; J7030; J7050; J7613; J7620